=== PATIENT | female | born 1970 | race Caucasian/White ===

== ENCOUNTER → 2017-01-29 | Outpatient (CLI) | payer BC ==
--- NOTE | 2017-01-29 14:21 | MM ---
Reason for exam: clinical finding. Last mammogram was performed 2 years and 10 months ago. History: Family history of breast cancer in aunt. Indicated problem(s): lump or thickening in the left breast. Physical Findings: Nurse Summary: 0.5cm/1cm nodule in the left breast at 1 o'clock/2 o'clock (nurse cw, mm). MG 3D Diag Mammo W/Cad LUCIANO Bilateral CC and MLO view(s) were taken. Prior study comparison: March 24, 2014, bilateral MG diagnostic mammo w CAD LUCIANO. The breast tissue is extremely dense which could obscure a lesion on mammography. Finding: There is a typically benign equal density (isodense), circumscribed round mass located 6 cm from the nipple in the upper outer quadrant, middle position of the left breast, corresponds to cyst on ultrasound. No significant changes in finding since March 24, 2014. These results were verbally communicated with the patient and result sheet given to the patient on 01/29/17. ASSESSMENT: Probably benign, BI-RAD 3 RECOMMENDATION: Follow-up diagnostic mammogram of the left breast in 6 months.
--- NOTE | 2017-01-29 14:24 | USB ---
Reason for exam: clinical finding. History: Family history of breast cancer in aunt. Indicated problem(s): lump or thickening in the left breast. US Breast BILAT Right breast ultrasound includes all four quadrants, the retroareolar region and axilla. Finding demonstrates a 1.0 x 0.9 x 0.5cm oval, mixed lesion at 10 o'clock. Left breast ultrasound includes all four quadrants, the retroareolar region and axilla. Finding demonstrates a 0.6 x 0.7 x 0.3cm oval, mixed lesion at 12 o'clock palpable, a 1.6 x 1.1 x 1.0cm cystic cluster at 1 o'clock palpable, a 1.2 x 1.2 x 0.7cm oval, cystic lesion at 1 o'clock palpable and a 0.5 x 0.5 x 0.3cm oval, cystic lesion at 7 o'clock. These results were verbally communicated with the patient and result sheet given to the patient on 01/29/17. ASSESSMENT: Probably benign, BI-RAD 3 RECOMMENDATION: Ultrasound of both breasts in 6 months.
== END ==
LOC: RADMAMWWP 12:28
PROVIDERS: ATTEND Family Medicine
DX: N63 Unspecified lump in breast (principal)
CPT/HCPCS: 76641; G0204; G0279

== ENCOUNTER → 2018-02-28 | Outpatient (CLI) | payer BC ==
--- NOTE | 2018-03-04 08:19 | MM ---
Reason for exam: screening (asymptomatic). Last mammogram was performed 7 months ago. History: Family history of breast cancer in aunt. Physical Findings: A clinical breast exam by your physician is recommended on an annual basis and results should be correlated with mammographic findings. MG 3D Screening Mammo W/Cad Bilateral CC and MLO view(s) were taken. Prior study comparison: August 07, 2017, left breast MG 3d diag mammo w/cad LT. January 29, 2017, bilateral MG 3d diag mammo w/cad LUCIANO. The breast tissue is heterogeneously dense. This may lower the sensitivity of mammography. There is chronic nodularity in the left breast. No significant changes when compared with prior studies. ASSESSMENT: Benign, BI-RAD 2 RECOMMENDATION: Routine screening mammogram of both breasts in 1 year.
== END | disposition home or self-care (01) ==
LOC: RADMAMWWP 06:59
PROVIDERS: ATTEND Family Medicine
DX: Z12.31 Encounter for screening mammogram for malignant neoplasm of breast (principal)
CPT/HCPCS: 77063; 77067

== ENCOUNTER 2018-04-20 17:18 | Inpatient (IN) | payer BC ==
--- NOTE | 2018-04-20 17:55 | ED ---
General Adult HPI - General Chief complaint: Chest Pain Stated complaint: CHEST PAIN Source: patient Mode of arrival: wheelchair Limitations: no limitations - History of Present Illness Initial comments: Dictation was produced using [employer] dictation software. please excuse any grammatical, word or spelling errors. Chief Complaint: 47-year-old femalepast medical history presents with crushing chest pain. History of Present Illness: Patient describes her symptoms as a bandlike pressure around her chest. She has strong family history of cardiac disease. Her father had CABG at the age of 47. She also has maternal, history of cardiac disease. Patient denies any medical problems. States that her pain is not mitigated or exacerbated with any movements. Denies any trauma to the chest. Denies any associated diaphoresis. He feels nauseated but no vomiting. The ROS documented in this emergency department record has been reviewed and confirmed by me. Those systems with pertinent positive or negative responses have been documented in the HPI. All other systems are other negative and/or noncontributory. - Related Data Home Medications Medication Instructions Recorded Confirmed Aspirin EC [Ecotrin] 325 mg PO DAILY PRN 04/20/18 04/20/18 Ibuprofen [Motrin Ib] 600 mg PO TID PRN 04/20/18 04/20/18 Allergies Allergy/AdvReac Type Severity Reaction Status Date / Time penicillin G Allergy Unknown Verified 04/20/18 17:29 Review of Systems ROS Statement: Those systems with pertinent positive or pertinent negative responses have been documented in the HPI. ROS Other: All systems not noted in ROS Statement are negative. Past Medical History Past Medical History: No Reported History History of Any Multi-Drug Resistant Organisms: None Reported Past Surgical History: Cholecystectomy, Hysterectomy Additional Past Surgical History / Comment(s): jaw Past Psychological History: No Psychological Hx Reported Smoking Status: Never smoker Past Alcohol Use History: None Reported Past Drug Use History: None Reported General Exam - General Exam Comments Initial Comments: PHYSICAL EXAM: General Impression: Alert and oriented x3, not in acute distress HEENT: Normocephalic atraumatic, extra-ocular movements intact, pupils equal and reactive to light bilaterally, mucous membranes moist. Cardiovascular: Heart regular rate and rhythm, S1&S2 audible, no murmurs, rubs or gallops Chest: Lungs clear to auscultation bilaterally, no rhonchi, no wheeze, no rales Abdomen: Bowel sounds present, abdomen soft, non-tender, non-distended, no organomegaly Musculoskeletal: Pulses present and equal in all extremities, no peripheral edema Motor: Power 5/5 bilaterally, no focal deficits noted Neurological: CN II-XII grossly intact, no focal motor or sensory deficits noted Skin: Intact with no visualized rashes Psych: Normal affect and mood Limitations: no limitations Course Vital Signs 04/20/18 04/20/18 04/20/18 17:20 18:55 20:41 Temperature 99 F 100.0 F H Pulse Rate 89 72 76 Respiratory 18 18 18 Rate Blood Pressure 151/86 139/87 133/79 O2 Sat by Pulse 97 98 96 Oximetry Medical Decision Making - Medical Decision Making ED course:-year-old female presents with chief complaint of chest pain. Vital signs upon arrival are within acceptable limits. She reports taking 325 mg of aspirin prior to arrival today. Serial EKGs were obtained. Initial EKG showed T-wave inversion in 3 and aVF. Repeat EKG was performed placement 30 minutes later with thin any changes with progressing T-wave inversions in 2 and precordial leads V2 and V3. Right-sided EKGs were obtained showing no ST segment elevation in the right side. EKG #4 was obtained showing no other changes. Discussed patient case with Dr. Adams at approximately 6:00 PM recommend the patient be heparinized and started on nitroglycerin paste. He did not feel the need to activate STEMI at this time. Laboratory evaluation was obtained. CBC is unremarkable. Patient is a pleasant , 90. She does not complain of any bleeding symptoms. Coag panel is unremarkable. D-dimer is 3.1. Metabolic panel is unremarkable. Cardiac enzymes are negative. Chest x-ray shows no acute processes. CT angios the chest was obtained for elevated d-dimer and suspicion of pulmonary embolus CT is negative. Clinical presentation is most consistent with unstable angina. Patient started on heparin and nitro. She will be admitted to selective care. Cardiology on consult. Patient is understandable and agreeable to plan. She received an aspirin prior to coming to the emergency department. Patient reevaluated and still continues have chest pain despite the nitroglycerin. She is given some IV analgesics. Patient denies any progression of her symptoms since being in the emergency department. Since the nitroglycerin is not helping with her symptoms. EKG Interpretation: A 12 lead EKG was obtained. It was interpreted by myself and attending physician. There is a P wave before every QRS complex. Rate is 78. Rhythm is normal sinus rhythm,. Interval 146, QRS 82, QTc 449. QT is not prolonged. No ST segment depression or elevation. There are T-wave inversions in 3 and aVF. - Lab Data Result diagrams: 04/20/18 18:00 04/20/18 18:00 Lab Results 04/20/18 04/20/18 04/20/18 Range/Units 18:00 18:00 18:00 WBC 4.7 (3.8-10.6) k/uL RBC 4.23 (3.80-5.40) m/uL Hgb 13.5 (11.4-16.0) gm/dL Hct 37.7 (34.0-46.0) % MCV 89.2 (80.0-100.0) fL MCH 31.8 (25.0-35.0) pg MCHC 35.6 (31.0-37.0) g/dL RDW 15.1 (11.5-15.5) % Plt Count 90 L (150-450) k/uL Neutrophils % (Manual) 21 % Lymphocytes % (Manual) 78 % Eosinophils % (Manual) 1 % Basophils % (Manual) 1 % Neutrophils # (Manual) 0.99 L (1.3-7.7) k/uL Lymphocytes # (Manual) 3.67 (1.0-4.8) k/uL Eosinophils # (Manual) 0.05 (0-0.7) k/uL Basophils # (Manual) 0.05 (0-0.2) k/uL Nucleated RBCs 0 (0-0) /100 WBC Manual Slide Review Performed Polychromasia Present Poikilocytosis (manual Present PT (9.0-12.0) sec INR (<1.2) APTT (22.0-30.0) sec D-Dimer (<0.60) mg/L FEU Sodium 139 (137-145) mmol/L Potassium 3.6 (3.5-5.1) mmol/L Chloride 107 (98-107) mmol/L Carbon Dioxide 24 (22-30) mmol/L Anion Gap 8 mmol/L BUN 19 H (7-17) mg/dL Creatinine 0.60 (0.52-1.04) mg/dL Est GFR (CKD-EPI)AfAm >90 (>60 ml/min/1.73 sqM) Est GFR (CKD-EPI)NonAf >90 (>60 ml/min/1.73 sqM) Glucose 119 H (74-99) mg/dL Calcium 9.4 (8.4-10.2) mg/dL Magnesium 1.7 (1.6-2.3) mg/dL Total Bilirubin 1.6 H (0.2-1.3) mg/dL AST 83 H (14-36) U/L ALT 37 (9-52) U/L Alkaline Phosphatase 54 (38-126) U/L Total Creatine Kinase 64 (30-135) U/L CK-MB (CK-2) 1.2 (0.0-2.4) ng/mL CK-MB (CK-2) Rel Index 1.9 Troponin I <0.012 (0.000-0.034) ng/mL Total Protein 6.4 (6.3-8.2) g/dL Albumin 4.1 (3.5-5.0) g/dL 04/20/18 Range/Units 18:00 WBC (3.8-10.6) k/uL RBC (3.80-5.40) m/uL Hgb (11.4-16.0) gm/dL Hct (34.0-46.0) % MCV (80.0-100.0) fL MCH (25.0-35.0) pg MCHC (31.0-37.0) g/dL RDW (11.5-15.5) % Plt Count (150-450) k/uL Neutrophils % (Manual) % Lymphocytes % (Manual) % Eosinophils % (Manual) % Basophils % (Manual) % Neutrophils # (Manual) (1.3-7.7) k/uL Lymphocytes # (Manual) (1.0-4.8) k/uL Eosinophils # (Manual) (0-0.7) k/uL Basophils # (Manual) (0-0.2) k/uL Nucleated RBCs (0-0) /100 WBC Manual Slide Review Polychromasia Poikilocytosis (manual PT 10.6 (9.0-12.0) sec INR 1.1 (<1.2) APTT 23.9 (22.0-30.0) sec D-Dimer 3.10 H (<0.60) mg/L FEU Sodium (137-145) mmol/L Potassium (3.5-5.1) mmol/L Chloride (98-107) mmol/L Carbon Dioxide (22-30) mmol/L Anion Gap mmol/L BUN (7-17) mg/dL Creatinine (0.52-1.04) mg/dL Est GFR (CKD-EPI)AfAm (>60 ml/min/1.73 sqM) Est GFR (CKD-EPI)NonAf (>60 ml/min/1.73 sqM) Glucose (74-99) mg/dL Calcium (8.4-10.2) mg/dL Magnesium (1.6-2.3) mg/dL Total Bilirubin (0.2-1.3) mg/dL AST (14-36) U/L ALT (9-52) U/L Alkaline Phosphatase (38-126) U/L Total Creatine Kinase (30-135) U/L CK-MB (CK-2) (0.0-2.4) ng/mL CK-MB (CK-2) Rel Index Troponin I (0.000-0.034) ng/mL Total Protein (6.3-8.2) g/dL Albumin (3.5-5.0) g/dL Disposition Clinical Impression: Unstable angina Disposition: ADMITTED IP TO THIS [facility] Condition: Fair Referrals: Nataliia Frias DO [Primary Care Provider] - 1-2 days Time of Disposition: 21:03
[2018-04-20] MEDS ORDERED: HEPARIN SODIUM,PORCINE 5,000 UNIT/ML 1 ML VIAL IV PRN (18:15)
[2018-04-20] MEDS ORDERED: HEPARIN SODIUM,PORCINE 5,000 UNIT/ML 1 ML VIAL IV ONE (18:15)
[2018-04-20] MEDS ORDERED: HEPARIN SOD,PORK IN 0.45% NACL 25,000 UNIT in 0.45% NACL 1 500ML.BAG IV SCH (18:15)
[2018-04-20] MEDS ORDERED: NITROGLYCERIN OINT 1 INCH/GM PACKET TOPICAL STA (18:16)
[2018-04-20 18:22] LABS: HCT 37.7 % (34.0-46.0); HGB 13.5 gm/dL (11.4-16.0); MCH 31.8 pg (25.0-35.0); MCHC 35.6 g/dL (31.0-37.0); MCV 89.2 fL (80.0-100.0); Mean Platelet Volume 7.6; RBC 4.23 m/uL (3.80-5.40); RDW 15.1 % (11.5-15.5); WBC 4.7 k/uL (3.8-10.6)
[2018-04-20 18:30] LABS: Creatine Kinase 64 U/L (30-135)
[2018-04-20 18:32] LABS: ALT 37 U/L (9-52); AST 83 U/L (14-36); Albumin 4.1 g/dL (3.5-5.0); Alkaline Phosphatase 54 U/L (38-126); Anion Gap 8 mmol/L; Blood Urea Nitrogen 19 mg/dL (7-17); Calcium 9.4 mg/dL (8.4-10.2); Carbon Dioxide 24 mmol/L (22-30); Chloride 107 mmol/L (98-107); Glucose 119 mg/dL (74-99); Magnesium 1.7 mg/dL (1.6-2.3); Potassium 3.6 mmol/L (3.5-5.1); Sodium 139 mmol/L (137-145); Total Bilirubin 1.6 mg/dL (0.2-1.3); Total Protein 6.4 g/dL (6.3-8.2)
[2018-04-20 18:38] LABS: INR 1.1 (<1.2); Partial Thromboplastin Time 23.9 sec (22.0-30.0); Prothrombin Time 10.6 sec (9.0-12.0)
[2018-04-20 18:41] LABS: D-Dimer 3.1 mg/L FEU (<0.60)
[2018-04-20 18:43] LABS: Creatine Kinase MB 1.2 ng/mL (0.0-2.4); Troponin I <0.012 ng/mL (0.000-0.034)
--- NOTE | 2018-04-20 18:43 | XR ---
EXAMINATION TYPE: XR chest 2V DATE OF EXAM: 04/20/2018 COMPARISON: 06/12/2016 HISTORY: Chest pain TECHNIQUE: Frontal and lateral views of the chest are obtained. FINDINGS: Heart and mediastinum are normal. Lungs are clear. Diaphragm is normal. Bony thorax appear s normal. IMPRESSION: Normal chest. No change.
[2018-04-20 18:48] LABS: Basophils # (M) 0.05 k/uL (0-0.2); Eosinophils # (M) 0.05 k/uL (0-0.7); Lymphocytes # (M) 3.67 k/uL (1.0-4.8); Neutrophils # (M) 0.99 k/uL (1.3-7.7); Neutrophils % (M) 21 %; Nucleated Red Blood Cells 0 /100 WBC (0-0); Platelet Count 90 k/uL (150-450); Poikilocytosis (M) Present; Polychromasia Present; Total Cells Counted 200
--- NOTE | 2018-04-20 20:12 | CT ---
EXAMINATION TYPE: CT angio chest DATE OF EXAM: 04/20/2018 7:57 PM COMPARISON: None HISTORY: Mid chest pain today. CT DLP: 197.8 mGycm Automated exposure control for dose reduction was used. CONTRAST: CTA scan of the thorax is performed with IV Contrast, patient injected with 82 mL of Isovue 370, pulm onary embolism protocol. There are 3-D post processed images.. FINDINGS: The lungs are clear of infiltrate. There is no sign of pleural effusion or pneumothorax. There is no evidence of a pulmonary mass. Heart size is normal. There is no pericardial effusion. There is normal contrast opacification of the pulmonary arteries. I see no filling defect. The thoracic aorta appear s normal with no sign of aneurysm or dissection. There is no mediastinal adenopathy. There are no hil ar masses. The bony thorax is intact. IMPRESSION: NORMAL EXAM. NO EVIDENCE OF PULMONARY EMBOLISM.
[2018-04-20] MEDS ORDERED: fentaNYL (PF) 50 MCG/ML 2 ML AMP IVP STA (20:56)
[2018-04-20] MEDS ORDERED: MORPHINE SULFATE 2 MG/ML SYRINGE IVP PRN (21:18)
[2018-04-20] MEDS: ONDANSETRON 4 MG/2 ML VIAL IVP STA (22:39)
[2018-04-20 22:53] LABS: Glucose,Whole Blood 159 mg/dL (75-99)
[2018-04-21 00:41] LABS: Creatine Kinase 49 U/L (30-135)
[2018-04-21 00:53] LABS: Creatine Kinase MB 0.7 ng/mL (0.0-2.4); Troponin I <0.012 ng/mL (0.000-0.034)
[2018-04-21 05:44] LABS: Mean Platelet Volume 7.8
[2018-04-21 05:46] LABS: Platelet Count 88 k/uL (150-450)
[2018-04-21 05:56] LABS: Cholesterol 134 mg/dL (<200); HDL Cholesterol 51 mg/dL (40-60); LDL Cholesterol,Calculated 69 mg/dL (0-99); Triglycerides 71 mg/dL (<150)
[2018-04-21 06:08] LABS: Creatine Kinase 74 U/L (30-135)
[2018-04-21 06:21] LABS: Creatine Kinase MB 1.5 ng/mL (0.0-2.4); Troponin I <0.012 ng/mL (0.000-0.034)
[2018-04-21 08:50] LABS: HCT 35.7 % (34.0-46.0); HGB 12.2 gm/dL (11.4-16.0); MCH 30.9 pg (25.0-35.0); MCHC 34.1 g/dL (31.0-37.0); MCV 90.8 fL (80.0-100.0); Mean Platelet Volume 8.3; RBC 3.94 m/uL (3.80-5.40); RDW 15.7 % (11.5-15.5); WBC 5.2 k/uL (3.8-10.6)
--- NOTE | 2018-04-21 08:55 | P.CRDCN ---
History of Present Illness Consult date: 04/21/18 Requesting physician: Duncan Islas Consult reason: chest pain Chief complaint: Chest pain History of present illness: This is a pleasant 47-year-old female with no prior documented history of hypertension, no diabetes, no hyperlipidemia, nonsmoker, strong family history of premature coronary artery disease in several relatives, her father had an [place] with bypass surgery at the age of 42. She presents to the hospital with symptoms of chest discomfort. According to the patient around 4: 00 on Saturday she states that she developed a pain in her lower back, she took some Motrin, had a hot bath, put some ointment on to help with the discomfort, shortly thereafter she states that the symptoms radiated around to her chest, she describes the pain as a squeezing sensation that was quite severe. She states that she was unable to take a deep breath because the pain was so severe , she does not recall that the pain got better or worse with movement or breathing. She states that the chest discomfort lasted almost the entire day on Saturday, she ultimately came to the emergency room for further evaluation. Pain persisted in the emergency room, around 4 AM she states that finally the pain was gone. Patient did have one episode while in the emergency room of vomiting. At the time of my examination she is currently chest pain-free. EKG on admission here showed a normal sinus rhythm with T-wave inversion in the inferior leads, subsequent EKG was similar, 30 EKG was performed which showed a normal sinus rhythm with T-wave inversion in the inferior leads and in the lateral leads. An EKG which was reviewed from 2015 did show the T-wave inversion in the inferior leads. Chest x-ray normal. Blood pressure 120/70 with a heart rate in the 60s, afebrile, 99% on 2 L of oxygen. Temperature on admission 99, one subsequent temperature was 100. White blood cell count 4.7, hemoglobin 13.5, platelet count 90, 88 this morning.D-dimer 3.10, sodium 139, potassium 3.6, BUN 19, creatinine 0.6. Troponins have been negative 3. Total bilirubin 1.6, AST 83, ALT 37. Magnesium 1.7. Past Medical History Past Medical History: No Reported History History of Any Multi-Drug Resistant Organisms: None Reported Past Surgical History: Cholecystectomy, Hysterectomy Additional Past Surgical History / Comment(s): jaw Past Psychological History: No Psychological Hx Reported Smoking Status: Never smoker Past Alcohol Use History: None Reported Past Drug Use History: None Reported Medications and Allergies Home Medications Medication Instructions Recorded Confirmed Type Aspirin EC [Ecotrin] 325 mg PO DAILY PRN 04/20/18 04/20/18 History Ibuprofen [Motrin Ib] 600 mg PO TID PRN 04/20/18 04/20/18 History Allergies Allergy/AdvReac Type Severity Reaction Status Date / Time penicillin G Allergy Unknown Verified 04/20/18 17:29 Physical Exam Vitals: Vital Signs Temp Pulse Resp BP Pulse Ox 04/21/18 08:24 68 16 119/73 99 04/21/18 07:02 73 18 119/74 97 04/21/18 05:40 98.8 F 87 18 115/70 97 04/21/18 03:05 98.8 F 75 16 110/70 98 04/21/18 00:56 98.9 F 81 18 113/71 96 04/20/18 22:40 69 16 117/71 97 04/20/18 20:41 100.0 F H 76 18 133/79 96 04/20/18 18:55 72 18 139/87 98 04/20/18 17:20 99 F 89 18 151/86 97 Intake and Output 04/20/18 04/21/18 04/21/18 22:59 06:59 14:59 Other: Weight 75.296 kg PHYSICAL EXAMINATION: GENERAL: 47-year-old female in no acute distress at the time of my examination HEENT: Head is atraumatic, normocephalic. Pupils equal, round. Sclera anicteric. Conjunctiva are clear. Mucous membranes of the mouth are moist. Neck is supple. There is no elevated jugular venous pressure. No carotid bruit is heard. HEART EXAMINATION: Heart S1, S2 normal. No murmur or gallop heard. CHEST EXAMINATION: Lungs are clear to auscultation and precussion. No chest wall tenderness is noted on palpation or with deep breathing. ABDOMEN: Soft, nontender. Bowel sounds are heard. No organomegaly noted. EXTREMITIES: 2+ peripheral pulses with no evidence of peripheral edema and no calf tenderness noted. NEUROLOGIC patient is awake, alert and oriented X3. . Results 04/21/18 05:24 04/20/18 18:00 Cardiac Enzymes 04/20/18 04/20/18 04/21/18 Range/Units 18:00 18:00 00:02 AST 83 H (14-36) U/L CK-MB (CK-2) 1.2 0.7 (0.0-2.4) ng/mL Troponin I <0.012 <0.012 (0.000-0.034) ng/mL 04/21/18 Range/Units 05:24 AST (14-36) U/L CK-MB (CK-2) 1.5 (0.0-2.4) ng/mL Troponin I <0.012 (0.000-0.034) ng/mL Coagulation 04/20/18 04/21/18 Range/Units 18:00 00:02 PT 10.6 (9.0-12.0) sec APTT 23.9 52.4 H (22.0-30.0) sec Lipids 04/21/18 Range/Units 05:24 Triglycerides 71 (<150) mg/dL Cholesterol 134 (<200) mg/dL HDL Cholesterol 51 (40-60) mg/dL CBC 04/20/18 04/21/18 Range/Units 18:00 05:24 WBC 4.7 (3.8-10.6) k/uL RBC 4.23 (3.80-5.40) m/uL Hgb 13.5 (11.4-16.0) gm/dL Hct 37.7 (34.0-46.0) % Plt Count 90 L 88 L (150-450) k/uL Comprehensive Metabolic Panel 04/20/18 Range/Units 18:00 Sodium 139 (137-145) mmol/L Potassium 3.6 (3.5-5.1) mmol/L Chloride 107 (98-107) mmol/L Carbon Dioxide 24 (22-30) mmol/L BUN 19 H (7-17) mg/dL Creatinine 0.60 (0.52-1.04) mg/dL Glucose 119 H (74-99) mg/dL Calcium 9.4 (8.4-10.2) mg/dL AST 83 H (14-36) U/L ALT 37 (9-52) U/L Alkaline Phosphatase 54 (38-126) U/L Total Protein 6.4 (6.3-8.2) g/dL Albumin 4.1 (3.5-5.0) g/dL Current Medications Generic Name Dose Route Start Last Admin Trade Name Hunterq PRN Reason Stop Dose Admin Aspirin 325 mg 04/21/18 09:00 Aspirin PO DAILY [facility] Heparin Sodium (Porcine) 0 unit 04/20/18 18:15 Heparin IV PER PROTOCOL PRN Low PTT Protocol Heparin Sodium/Sodium Chloride 500 mls @ 18.07 mls/hr 04/20/18 18:15 19:13 25,000 unit/ Sodium Chloride IV 12 units/kg/hr .Q24H CONY 18.07 mls/hr Administration Protocol 12 UNITS/KG/HR Morphine Sulfate 2 mg 04/20/18 21:18 Morphine Sulfate (Inj) IVP Q4H PRN Pain/Discomfort Intake and Output 04/20/18 04/21/18 04/21/18 22:59 06:59 14:59 Other: Weight 75.296 kg 04/21/18 05:24 04/20/18 18:00 EKG Interpretations (text) Initial EKG shows normal sinus rhythm with T-wave inversion in the inferior leads, 3rd EKG showed normal sinus rhythm with a T-wave inversion in the inferior and lateral leads. Assessment and Plan Plan: Assessment and plan #1 symptoms of lower back discomfort with radiation around to the chest, atypical features for acute coronary syndrome. Troponins are negative 3. EKG shows normal sinus rhythm with T-wave inversion in the inferior leads similar to prior EKG in 2016. Subsequent EKG shows normal sinus rhythm with T-wave inversion in the inferior and lateral leads. #2 strong family history of premature coronary artery disease #3 abnormal d-dimer, CT of the chest negative for PE #4 elevated bilirubin and AST, patient does have a history of cholecystectomy in the past #5 cardiac risk factors negative for hypertension, no diabetes, no hyperlipidemia, she is a nonsmoker. Cholesterol 134, LDL 69, HDL 51, triglycerides 71. Plan We will discontinue the IV heparin. Obtain echocardiogram with Doppler study. We will recommend the patient undergo stress testing, further recommendations will be based on these findings and the patient's clinical course. DNP note has been reviewed, I agree with a documented findings and plan of care. Patient was seen and examined.
[2018-04-21] MEDS ORDERED: ASPIRIN 325 MG TAB PO SCH (09:00)
[2018-04-21 09:22] LABS: ALT 32 U/L (9-52); AST 75 U/L (14-36); Albumin 3.7 g/dL (3.5-5.0); Alkaline Phosphatase 47 U/L (38-126); Anion Gap 8 mmol/L; Blood Urea Nitrogen 16 mg/dL (7-17); Calcium 8.6 mg/dL (8.4-10.2); Carbon Dioxide 25 mmol/L (22-30); Chloride 106 mmol/L (98-107); Glucose 124 mg/dL (74-99); Potassium 3.6 mmol/L (3.5-5.1); Sodium 139 mmol/L (137-145); Total Bilirubin 2.1 mg/dL (0.2-1.3); Total Protein 5.9 g/dL (6.3-8.2)
[2018-04-21] MEDS ORDERED: REGADENOSON 0.4 MG/5 ML SYRINGE IV ONE (10:11)
[2018-04-21] MEDS ORDERED: AMINOPHYLLINE 500 MG/20 ML VIAL IV PRN (10:11)
--- NOTE | 2018-04-21 10:14 | ECHOF ---
Referral Reason:chest pain MEASUREMENTS -------- HEIGHT: 177.8 cm WEIGHT: 75.3 kg BP: 110/75 RVIDd: 2.0 cm (< 3.3) IVSd: 0.9 cm (0.6 - 1.1) LVIDd: 4.7 cm (3.9 - 5.3) LVPWd: 0.9 cm (0.6 - 1.1) IVSs: 1.3 cm LVIDs: 2.9 cm LVPWs: 1.3 cm LAESV Index (A-L): 23.68 ml/m Ao Diam: 3.2 cm (2.0 - 3.7) AV Cusp: 1.9 cm (1.5 - 2.6) LA Diam: 2.7 cm (2.7 - 3.8) EPSS: 0.4 cm MV E Dewayne: 0.65 m/s MV DecT: 329 ms MV A Dewayne: 0.54 m/s MV E/A Ratio: 1.20 RAP: 5.00 mmHg RVSP: 17.93 mmHg MV EF SLOPE: 77.60 mm/s (70 - 150) MV EXCURSION: 1.59 cm (> 18.000) FINDINGS -------- Sinus rhythm. This was a technically good study. The left ventricular size is normal. Left ventricular wall thickness is normal. Overall left vent ricular systolic function is normal with, an EF between 55 - 60 %. The right ventricle is normal in size and function. Normal LA size by volume 22+/-6 ml/m2. The right atrium is normal in size. The aortic valve is trileaflet, and appears structurally normal. No aortic stenosis or regurgitation. The mitral valve is normal. There is trace to mild mitral regurgitation. Trace tricuspid regurgitation present. Right ventricular systolic pressure is normal at < 35 mmHg. There is no evidence of pulmonary hypertension. Trace/mild (physiologic) pulmonic regurgitation. The aortic root size is normal. Normal inferior vena cava with normal inspiratory collapse consistent with estimated right atrial pre ssure of 5 mmHg. There is no pericardial effusion. CONCLUSIONS -------- 1. Sinus rhythm. 2. This was a technically good study. 3. The left ventricular size is normal. 4. Left ventricular wall thickness is normal. 5. Overall left ventricular systolic function is normal with, an EF between 55 - 60 %. 6. Normal LA size by volume 22+/-6 ml/m2. 7. The aortic valve is trileaflet, and appears structurally normal. No aortic stenosis or regurgitati on. 8. There is trace to mild mitral regurgitation. 9. Trace tricuspid regurgitation present. 10. Right ventricular systolic pressure is normal at < 35 mmHg. 11. Trace/mild (physiologic) pulmonic regurgitation. 12. The aortic root size is normal. 13. There is no pericardial effusion. FIRMWARE ARCHITECT: Anant Cohen RDCS
[2018-04-21 10:35] LABS: Anisocytosis (M) Present; Lymphocytes # (M) 3.33 k/uL (1.0-4.8); Myelocytes # (M) 0.05 k/uL (0); Myelocytes % 1 %; Nucleated Red Blood Cells 0 /100 WBC (0-0); Polychromasia Present; Total Cells Counted 200
[2018-04-21 10:36] LABS: Platelet Count 88 k/uL (150-450)
[2018-04-21] MEDS ORDERED: SODIUM CHLORIDE 0.9% 1,000 ML IV SCH (10:45)
[2018-04-21 11:14] LABS: Amylase 44 U/L (30-110); Lipase 77 U/L (23-300)
--- NOTE | 2018-04-21 11:18 | P.HPIM ---
History of Present Illness H&P Date: 04/21/18 Chief Complaint: chest pain This is a 47-year-old female patient of Dr. Frias. Patient presented to the emergency room with complaints of chest pain that started in the early hours of Saturday morning. Patient stated pain started out in back radiating to around her chest. Patient states it felt like a band was wrapped around her chest patient has a known past medical history of cholecystectomy and hysterectomy. Patient does ache that she has strong family history of cardiac disease including her father who had open heart surgery at the age of 42. Troponins have been negative. Chest x-ray completed showing normal chest. no Change. Admission d-dimer elevated at 3.10 DT the chest completed was negative for pulmonary embolism. EKG completed showing normal sinus rhythm. T-wave abnormality, consider inferior ischemia. Cardiology services were consulted. 2 -D echo completed EF of 55-60%. Patient was started on heparin drip on admission. Heparin drip has been DC'd per cardiology services and planning for a Chemical stress test today. Patient's platelets on admission 90. Denies any signs of active bleeding at this time. Bilirubin increasing to 2.1 and AST 75. Complete abdominal ultrasound has been ordered along with amylase and lipase levels. Patient denies any alcohol consumption. Patient does state she has been nauseous with some emesis yesterday and today. Patient denies shortness of breath. denies any urinary burning or frequency. Review of Systems Please refer to HPI otherwise unremarkable Past Medical History Past Medical History: No Reported History History of Any Multi-Drug Resistant Organisms: None Reported Past Surgical History: Cholecystectomy, Hysterectomy Additional Past Surgical History / Comment(s): jaw Past Psychological History: No Psychological Hx Reported Smoking Status: Never smoker Past Alcohol Use History: None Reported Past Drug Use History: None Reported Medications and Allergies Home Medications Medication Instructions Recorded Confirmed Type Aspirin EC [Ecotrin] 325 mg PO DAILY PRN 04/20/18 04/20/18 History Ibuprofen [Motrin Ib] 600 mg PO TID PRN 04/20/18 04/20/18 History Allergies Allergy/AdvReac Type Severity Reaction Status Date / Time penicillin G Allergy Unknown Verified 04/20/18 17:29 Physical Exam Vitals: Vital Signs Temp Pulse Resp BP Pulse Ox 04/21/18 10:39 70 18 110/72 98 04/21/18 08:24 68 16 119/73 99 04/21/18 07:02 73 18 119/74 97 04/21/18 05:40 98.8 F 87 18 115/70 97 04/21/18 03:05 98.8 F 75 16 110/70 98 04/21/18 00:56 98.9 F 81 18 113/71 96 04/20/18 22:40 69 16 117/71 97 04/20/18 20:41 100.0 F H 76 18 133/79 96 04/20/18 18:55 72 18 139/87 98 04/20/18 17:20 99 F 89 18 151/86 97 Intake and Output 04/20/18 04/21/18 04/21/18 22:59 06:59 14:59 Other: Weight 75.296 kg Head normocephalic Neck supple Lungs clear to auscultation bilaterally no wheezing or crackles Heart regular rate and rhythm S1-S2, no rub or gallop Abdomen is soft nontender nondistended positive bowel sounds no hepatosplenomegaly Extremities no edema Neuro alert and orientated to 3 Results CBC & Chem 7: 04/21/18 05:24 04/21/18 05:24 Labs: Abnormal Lab Results - Last 24 Hours (Table) 04/20/18 04/20/18 04/20/18 Range/Units 18:00 18:00 18:00 RDW (11.5-15.5) % Plt Count 90 L (150-450) k/uL Neutrophils # (Manual) 0.99 L (1.3-7.7) k/uL APTT (22.0-30.0) sec D-Dimer 3.10 H (<0.60) mg/L FEU BUN 19 H (7-17) mg/dL Glucose 119 H (74-99) mg/dL POC Glucose (mg/dL) (75-99) mg/dL Total Bilirubin 1.6 H (0.2-1.3) mg/dL AST 83 H (14-36) U/L Total Protein (6.3-8.2) g/dL 04/20/18 04/21/18 04/21/18 Range/Units 22:37 00:02 05:24 RDW (11.5-15.5) % Plt Count 88 L (150-450) k/uL Neutrophils # (Manual) (1.3-7.7) k/uL APTT 52.4 H (22.0-30.0) sec D-Dimer (<0.60) mg/L FEU BUN (7-17) mg/dL Glucose (74-99) mg/dL POC Glucose (mg/dL) 159 H (75-99) mg/dL Total Bilirubin (0.2-1.3) mg/dL AST (14-36) U/L Total Protein (6.3-8.2) g/dL 04/21/18 04/21/18 Range/Units 05:24 05:24 RDW 15.7 H (11.5-15.5) % Plt Count (150-450) k/uL Neutrophils # (Manual) (1.3-7.7) k/uL APTT (22.0-30.0) sec D-Dimer (<0.60) mg/L FEU BUN (7-17) mg/dL Glucose 124 H (74-99) mg/dL POC Glucose (mg/dL) (75-99) mg/dL Total Bilirubin 2.1 H (0.2-1.3) mg/dL AST 75 H (14-36) U/L Total Protein 5.9 L (6.3-8.2) g/dL Assessment and Plan Assessment: 1. Chest pain. Patient does state she has a history of cardiac disease including father who had open bypass at age 42. Troponin levels are negative. D-dimer was elevated at 3.10. CTA negative for pulmonary embolism. EKG showing normal sinus rhythm with T-wave abnormality. Chest x-ray completed and was negative for pulmonary disease. 2-D echo completed showing EF of 55-60%. Patient was started on heparin drip. Cardiology services following. Heparin drip has been discontinued and plan for chemical stress test per cardiology 2. Nausea and vomiting. Complete ultrasound of abdomen ordered. Amylase and lipase levels also ordered. 2. Thromobcytepenia. Platelets 88. Etiology unclear. Ultrasound of abdomen ordered. Heparin drip has been discontinued per cardiology 3. Elevated liver enzymes and total bilirubin. AST 75 and total bilirubin 2.1. She does report that she is nauseated. Complete ultrasound of abdomen ordered along with amylase and lipase levels 4. History of Cholesyctecomy DVT prophylaxis SCDs. Patient previously on heparin drip. DVT prophylaxis Pepcid Time with Patient: Greater than 30 (Greater than 60% of the total time spent in counseling and coordination of care.I performed an examination of the patient and discussed their management with the Nurse Practitioner. I have reviewed the Nurse Practitioner's notes and agree with the documented findings and plan of care)
--- NOTE | 2018-04-21 12:39 | NM ---
EXAMINATION TYPE: NM stress lexiscan cardiolite DATE OF EXAM: 04/21/2018 COMPARISON: Prior nuclear medicine Cardiolite study March 27, 2010. HISTORY: Chest pain and palpitations. TECHNIQUE: After the intravenous administration of 10.3 mCi Tc 99m Sestamibi - Cardiolite resting SP ECT images acquired 45 minutes post injection. The patient received 0.4mg Lexiscan, 25.4 mCi Tc 99m Sestamibi - Stress images obtained [address] injection FINDINGS: Review of stress and rest SPECT images demonstrates no distinct perfusion abnormality. Gated analysi s shows normal wall motion with an estimated left ventricular ejection fraction of 71 % during rest. IMPRESSION: No scintigraphic evidence for reversible ischemia.
[2018-04-21] MEDS: ONDANSETRON 4 MG/2 ML VIAL IVP STA (12:44)
[2018-04-21] MEDS ORDERED: ACETAMINOPHEN TAB 500 MG TAB PO STA (12:46)
[2018-04-21 12:53] VITALS: RESP 16
--- NOTE | 2018-04-21 13:16 | EST ---
EXERCISE STRESS DATE OF SERVICE: 04/21/2018 AGE: 47 SEX: Female HT: 70" WT: 166 pounds PROTOCOL: Lexiscan Cardiolite STAGE: DURATION OF EXERCISE: HEART RATE REST: 54 BLOOD PRESSURE REST: 127/62 MAXIMUM HEART RATE ACHIEVED: 106 MAXIMUM BLOOD PRESSURE: 155/80 85% MPHR: 147 100% MPHR: 173 METS: INDICATIONS: Chest pain. CLINICAL INFORMATION: Baseline rhythm is sinus mechanism, rate 54, normal axis, intervals with nonspecific ST- T wave changes. Baseline blood pressure 127/62 mmHg. Patient received injection of Lexiscan. Electrocardiographic monitoring revealed no evidence of diagnostic ischemic ST deviation. Cardiolite was injected per protocol. CONCLUSION: 1. Nondiagnostic electrocardiograph stress testing. 2. Nuclear images will be reported separately. MMODL / IJN: [id number] /
[2018-04-21 14:28] LABS: Band Neutrophils % 2 %; Eosinophils # (M) 0.05 k/uL (0-0.7); Metamyelocytes # (M) 0.05 k/uL (0); Metamyelocytes % 1 %; Monocytes # (M) 0.31 k/uL (0-1.0); Neutrophils % (M) 26 %
--- NOTE | 2018-04-21 15:31 | US ---
EXAMINATION TYPE: US abdomen complete DATE OF EXAM: 04/21/2018 COMPARISON: CT abdomen and pelvis March 29, 2010 CLINICAL HISTORY: EC patient with nausea, elevated liver and total bilirubin, vomiting, chest pain an d back pain; prior left renal stone; gallbladder removed. EXAM MEASUREMENTS: Liver Length: 15.9 cm Gallbladder Wall: surgically removed CBD: 0.4 cm Spleen: 10.1 cm Right Kidney: 11.1 x 4.8 x 4.1 cm Left Kidney: 10.7 x 5.4 x 4.2 cm Pancreas: wnl Liver: wnl Gallbladder: surgically absent Evidence for sonographic Beach's sign: no CBD: wnl Spleen: wnl Right Kidney: prominent renal pelvis at 1.2cm A/P Left Kidney: possible very small calcifications mid pole Upper IVC: wnl Abd Aorta: size is wnl; intimal wall changes noted mid and distally Suspect redemonstration of left renal calculus. Prominent right renal pelvis without definitive calyc eal dilatation. IMPRESSION: Possible new mild right-sided hydronephrosis or prominent renal pelvis though this is mor e prominent from 2010 CT. Consider obstructing ureter calculus given patient's history especially kno wing history of prior left-sided kidney stones.
--- NOTE | 2018-04-21 17:27 | P.DS ---
Providers Date of admission: 04/20/18 20:59 Expected date of discharge: 04/21/18 Attending physician: Duncan Islas Consults: 04/20/18 20:59 Consult Physician Urgent Consulting Provider: Burke Adams Consult Reason/Comments: unstable angina Do you want consulting provider notified?: Yes 04/21/18 12:32 Consult Physician Routine Consulting Provider: Jeronimo Shah Consult Reason/Comments: elevated total bilirubin, elevated AST and low platelets Do you want consulting provider notified?: Yes Primary care physician: Nataliia Frias [facility] Course: Diagnoses on Discharge: 1. Chest pain. Troponin levels are negative. D-dimer was elevated at 3.10. CTA negative for pulmonary embolism. EKG showing normal sinus rhythm with T- wave abnormality. Chest x-ray completed and was negative for pulmonary disease. 2-D echo completed showing EF of 55-60%. Patient was started on heparin drip. Cardiology services following. Heparin drip has been discontinue by cardiology patient had a stress test which was negative , she was cleared for discharge by cardiology. 2. Nausea and vomiting. Complete ultrasound of abdomen ordered. Amylase and lipase levels also ordered. Abdominal ultrasound revealed right sided hydronephrosis, with possible obstructing ureter calculus. 2. Thromobcytepenia. Platelets 88. Etiology unclear. Ultrasound of abdomen ordered. Heparin drip has been discontinued per cardiology. 3. Elevated liver enzymes and total bilirubin. AST 75 and total bilirubin 2.1. She does report that she is nauseated. Complete ultrasound of abdomen ordered along with amylase and lipase levels done no abnormality in the liver or spleen was found, possible right kidney hydronephrosis discussed in the ultrasound report. [facility]. [facility] Samina Coello is a 47-year-old female patient of Dr. Frias. Patient presented to the emergency room with complaints of chest pain that started in the early hours of Saturday morning. Patient stated pain started out in back radiating to around her chest. Patient states it felt like a band was wrapped around her chest patient has a known past medical history of cholecystectomy and hysterectomy. Patient does ache that she has strong family history of cardiac disease including her father who had open heart surgery at the age of 42. Troponins have been negative. Chest x-ray completed showing normal chest. no Change. Admission d-dimer elevated at 3.10 DT the chest completed was negative for pulmonary embolism. EKG completed showing normal sinus rhythm. T- wave abnormality, consider inferior ischemia. Cardiology services were consulted. 2-D echo completed EF of 55-60%. Patient was started on heparin drip on admission. Heparin drip has been DC'd per cardiology services and planning for a Chemical stress test today. Patient's platelets on admission 90. Denies any signs of active bleeding at this time. Bilirubin increasing to 2.1 and AST 75. Complete abdominal ultrasound has been ordered along with amylase and lipase levels. Patient denies any alcohol consumption. Patient does state she has been nauseous with some emesis yesterday and today. Patient denies shortness of breath. denies any urinary burning or frequency. Patient clinically improved significantly pain has resolved she was able to tolerate diet well without any further episodes of nausea and vomiting. Cardiac tests are within normal limits. Cause of elevated AST and elevated bilirubin is not entirely clear at this time , patient given choice of been admitted to the hospital for follow-up or following up with her primary care physician Dr. Frias for further outpatient testing, she chose to be discharged and follow-up as outpatient. Patient will follow-up with Dr. Nataliia Frias within the next 2-3 days further testing needs to be done in that regard to elevated AST and bilirubin level and in regard to low platelet level Further testing needs to be done also in regard to the right sided hydronephrosis. Patient Condition at Discharge: Fair Plan - Discharge Summary Discharge Rx Participant: No New Discharge Prescriptions: Continue Aspirin EC [Ecotrin] 325 mg PO DAILY PRN PRN Reason: Pain Ibuprofen [Motrin Ib] 600 mg PO TID PRN PRN Reason: Pain Discharge Medication List Aspirin EC [Ecotrin] 325 mg PO DAILY PRN 04/20/18 [History] Ibuprofen [Motrin Ib] 600 mg PO TID PRN 04/20/18 [History] Follow up Appointment(s)/Referral(s): Nataliia Frias DO [Primary Care Provider] - 1-2 days
[2018-04-21 17:57] VITALS: BP 128/74; PULSE 78; TEMP 97.8
[2018-04-22] MEDS ORDERED: FAMOTIDINE 20 MG TAB PO SCH (09:00)
== END 2018-04-21 18:01 | disposition home or self-care (01) | DRG 313 ==
LOC: EC 17:18 → 6SEL 20:59
PROVIDERS: ADMIT Internal Medicine; ATTEND Internal Medicine
DX: R07.89 Other chest pain (principal); N13.30 Unspecified hydronephrosis; D69.6 Thrombocytopenia, unspecified; E80.6 Other disorders of bilirubin metabolism; Z79.82 Long term (current) use of aspirin; Z82.49 Family history of ischemic heart disease and other diseases of the circulatory system; Z90.49 Acquired absence of other specified parts of digestive tract; Z90.710 Acquired absence of both cervix and uterus; Z88.0 Allergy status to penicillin; R11.2 Nausea with vomiting, unspecified; R79.1 Abnormal coagulation profile
CPT/HCPCS: 36415; 71046; 71275; 76700; 78452; 80053; 80061; 82150; 82550; 82553; 83690; 83735; 84484; 85025; 85049; 85379; 85610; 85730; 93005; 93017; 93306; 96365; 96366; 96375; 96376; 99285

== ENCOUNTER → 2018-05-07 | Outpatient (CLI) | payer BC ==
--- NOTE | 2018-05-08 08:00 | CT ---
EXAMINATION TYPE: CT abdomen pelvis w con DATE OF EXAM: 05/07/2018 COMPARISON: 03/29/2010 INDICATION: Hydroureter DLP: 1061 mGycm, Automated exposure control for dose reduction was used. CONTRAST: 100 mL of Isovue 300. Study performed with Oral Contrast TECHNIQUE: Axial images were obtained from above the diaphragm to the pubic rami in the axial plane a t 5 mm thick sections. Reconstructed images are reviewed on the computer in the coronal plane. FINDINGS: Limited CT sections are obtained the lung bases. The lung bases are clear. CT ABDOMEN: Liver: Normal Spleen: Normal Pancreas: Normal Adrenal glands: The adrenal glands are normal. Gallbladder: Surgically absent Kidneys: No masses are evident. No hydronephrosis is present. No cysts are present. Delayed images were obtained through the kidneys, which remain unremarkable. Aorta: Normal Inferior vena cava: Normal. CT PELVIS: Loops of bowel within the abdomen and pelvis are normal. There is some thickening within the distal sigmoid colon. Image 65 series 3. There are loops of bowel which are incompletely distended or lack oral contrast limiting their evaluation. Appendix: Normal as visualized. Urinary bladder: Normal. Genitourinary structures: Adnexal regions appear within normal limits. Some follicles may be present. Uterus is absent. No free fluid is within the pelvis. Osseous structures: No suspicious lytic or sclerotic lesions. IMPRESSIONS: 1. Mild wall thickening which could be related to incomplete distention or mild colitis of the sigmo id colon. 2. No hydronephrosis or hydroureter evident based on current imaging.
== END | disposition home or self-care (01) ==
LOC: RADCTMAIN 12:25
PROVIDERS: ATTEND Family Medicine
DX: K63.89 Other specified diseases of intestine (principal); N13.4 Hydroureter
CPT/HCPCS: 74177; Q9967

== ENCOUNTER → 2018-05-27 | Outpatient (CLI) | payer BC | END | disposition home or self-care (01) | LOC: CPPFTMAIN 14:05 | PROVIDERS: ATTEND Internal Medicine | DX: C95.00 Acute leukemia of unspecified cell type not having achieved remission (principal) | CPT/HCPCS: 94060; 94726; 94729 ==

== ENCOUNTER 2018-06-11 02:22 | Emergency (ER) | payer BC ==
[2018-06-11 02:37] VITALS: TEMP 98.8
[2018-06-11] MEDS ORDERED: SODIUM CHLORIDE 0.9% 500 ML IV SCH (03:15)
[2018-06-11 03:44] LABS: HCT 28.5 % (34.0-46.0); HGB 10.5 gm/dL (11.4-16.0); Hyperchromasia Slight; MCH 32.2 pg (25.0-35.0); MCHC 36.9 g/dL (31.0-37.0); MCV 87.4 fL (80.0-100.0); RBC 3.26 m/uL (3.80-5.40); RDW 14.8 % (11.5-15.5)
[2018-06-11 03:46] LABS: Appearance,Urine Clear (Clear); Bilirubin,Urine Negative (Negative); Blood,Urine Negative (Negative); Color,Urine Yellow; Glucose,Urine (UA) Negative (Negative); Ketones,Urine Negative (Negative); Leukocyte Esterase,Urine Negative (Negative); Nitrite,Urine Negative (Negative); PH, Urine 6.5 (5.0-8.0); Protein,Urine Negative (Negative); Specific Gravity,Urine 1.007 (1.001-1.035); Urobilinogen,Urine <2.0 mg/dL (<2.0)
--- NOTE | 2018-06-11 03:51 | ED ---
Weakness HPI - General Chief complaint: Weakness Stated complaint: Weakness Time Seen by Provider: 06/11/18 02:41 Source: patient, family, EMS Mode of arrival: EMS Limitations: no limitations - History of Present Illness Initial comments: Dizzy 47-year-old female with recently diagnosed a LL for which she is currently undergoing chemotherapy. Patient reports that she began chemotherapy last June 02. She reports that she did well after the chemotherapy. She had a repeat chemotherapy on this June 09. During that treatment she was noted to have low platelets and received a platelet transfusion, she was also noted to be hypertensive and was treated with hydralazine. Patient reports that she's been feeling somewhat fatigued since chemotherapy. She's been monitoring her vital signs at home. She has not had any fevers, she has felt some nausea but not had any vomiting or diarrhea. She's been eating and drinking well. She states that today she was feeling very fatigued and she checked her blood pressure and noted that she had a systolic blood pressure of only 88. She attempted to contact her oncologist at [facility] but was unsuccessful, she contacted their nursing line who advised her to seek care at the nearest emergency department. Upon arrival in the emergency department the patient reports she is feeling much better and her blood pressure is improved. - Related Data Home Medications Medication Instructions Recorded Confirmed Aspirin EC [Ecotrin] 325 mg PO DAILY PRN 04/20/18 04/20/18 Ibuprofen [Motrin Ib] 600 mg PO TID PRN 04/20/18 04/20/18 Allergies Allergy/AdvReac Type Severity Reaction Status Date / Time penicillin G Allergy Unknown Verified 06/11/18 02:37 Review of Systems ROS Statement: Those systems with pertinent positive or pertinent negative responses have been documented in the HPI. ROS Other: All systems not noted in ROS Statement are negative. Past Medical History Past Medical History: GERD/Reflux Additional Past Medical History / Comment(s): "Extra heart beat"-limits caffeine , sinus problems at times, R kidney stone pt passed on her own. leukemia History of Any Multi-Drug Resistant Organisms: None Reported Past Surgical History: Cholecystectomy, Hysterectomy, Tubal Ligation Additional Past Surgical History / Comment(s): Jaw surgery for abnormal bone growth, Past Anesthesia/Blood Transfusion Reactions: Motion Sickness, Postoperative Nausea & Vomiting (PONV) Past Psychological History: No Psychological Hx Reported Smoking Status: Never smoker Past Alcohol Use History: None Reported Past Drug Use History: None Reported - Past Family History Mother Family Medical History: No Reported History Father Family Medical History: Coronary Artery Disease (CAD) Additional Family Medical History / Comment(s): Father had CABG at the age of 47yrs. General Exam - General Exam Comments Initial Comments: GENERAL: Patient is well-developed and well-nourished. Patient is nontoxic appearing. HENT: Normocephalic, Atraumatic. Neck is soft and supple. No significant lymphadenopathy is noted. Oropharynx is clear. Moist mucous membranes. Neck has full range of motion without eliciting any pain. EYES: The sclera were anicteric and conjunctiva were pink and moist. Extraocular movements were intact and pupils were equal round and reactive to light. Eyelids were unremarkable. PULMONARY: Unlabored respirations. Good breath sounds bilaterally. No audible rales rhonchi or wheezing was noted. CARDIOVASCULAR: There is a regular rate and rhythm without any murmurs gallops or rubs. ABDOMEN: Soft and nontender with normal bowel sounds. SKIN: Skin is clear with no lesions or rashes and otherwise unremarkable. PICC line in place in left arm NEUROLOGIC: Patient is alert and oriented x3. Cranial nerves II through XII are grossly intact. Motor and sensory are also intact. Normal speech, volume and content. Symmetrical smile. MUSCULOSKELETAL: Normal extremities with adequate strength and full range of motion. No lower extremity swelling or edema. No calf tenderness. LYMPHATICS: No significant lymphadenopathy is noted PSYCHIATRIC: Normal psychiatric evaluation. Limitations: no limitations Limitations: no limitations Course Vital Signs 06/11/18 06/11/18 02:32 04:11 Temperature 98.8 F Pulse Rate 72 66 Respiratory 18 16 Rate Blood Pressure 119/72 103/75 O2 Sat by Pulse 97 96 Oximetry EKG Findings - EKG Comments: EKG Findings:: EKG obtained at 3:44 AM, rate is 60, rhythm is sinus, normal axis , normal intervals, WV 120, QRS 80, QTC is 448. There is no acute ST elevations or depressions. There is no evidence of acute ischemia or infarction. Medical Decision Making - Medical Decision Making The patient was seen and evaluated, history was obtained from the patient An initial evaluation the patient's quite well appearing considering her medical history, she appears mildly dehydrated, blood pressure is 119 systolic. Heart rate in the 70s. The patient does admit to feeling weak and having hypotension at home. At this time I will pursue a full workup considering that the patient is known to be neutropenic, thrombocytopenic and undergoing chemotherapy for ALL. Labs at baseline - patient with persistent neutropenia, thrombocytopenia improving Persistently elevated transaminases LDH elevated Patient's VS stable in the ER, BP improved after IVF, patient remains afebrile Is also discussed with the patient and her family at bedside. I discussed with him options for admission for further monitoring versus discharge home. At this time the patient would prefer to be discharged home stating that she doesn' t feel staying in the hospital is beneficial considering her immune compromised state. Patient has a close relationship with her oncologist and can follow-up in the next 24 hours. She does have established follow-up for Saturday but we'll culture dated follow up sooner. Return grandmother's were discussed. All questions pertaining care were answered and the patient was discharged home. - Lab Data Result diagrams: 06/11/18 03:28 06/11/18 03:28 Lab Results 06/11/18 06/11/18 06/11/18 Range/Units 03:28 03:28 03:28 WBC 0.4 L* (3.8-10.6) k/uL RBC 3.26 L (3.80-5.40) m/uL Hgb 10.5 L (11.4-16.0) gm/dL Hct 28.5 L (34.0-46.0) % MCV 87.4 (80.0-100.0) fL MCH 32.2 (25.0-35.0) pg MCHC 36.9 (31.0-37.0) g/dL RDW 14.8 (11.5-15.5) % Plt Count 28 L (150-450) k/uL Neutrophils # [employer] Differential Comment Hyperchromasia Slight PT (9.0-12.0) sec INR (<1.2) APTT (22.0-30.0) sec Sodium 132 L (137-145) mmol/L Potassium 3.7 (3.5-5.1) mmol/L Chloride 97 L (98-107) mmol/L Carbon Dioxide 26 (22-30) mmol/L Anion Gap 9 mmol/L BUN 17 (7-17) mg/dL Creatinine 0.55 (0.52-1.04) mg/dL Est GFR (CKD-EPI)AfAm >90 (>60 ml/min/1.73 sqM) Est GFR (CKD-EPI)NonAf >90 (>60 ml/min/1.73 sqM) Glucose 95 (74-99) mg/dL Plasma Lactic Acid José Miguel 1.3 (0.7-2.0) mmol/L Uric Acid 2.4 L (3.7-7.4) mg/dL Calcium 8.7 (8.4-10.2) mg/dL Magnesium 2.2 (1.6-2.3) mg/dL Total Bilirubin 2.6 H (0.2-1.3) mg/dL AST 55 H (14-36) U/L ALT 153 H (9-52) U/L Alkaline Phosphatase 119 (38-126) U/L Lactate Dehydrogenase 1365 H (313-618) U/L Total Protein 5.7 L (6.3-8.2) g/dL Albumin 3.4 L (3.5-5.0) g/dL Urine Color Urine Appearance (Clear) Urine pH (5.0-8.0) Ur Specific [place] (1.001-1.035) Urine Protein (Negative) Urine Glucose (UA) (Negative) Urine Ketones (Negative) Urine Blood (Negative) Urine Nitrite (Negative) Urine Bilirubin (Negative) Urine Urobilinogen (<2.0) mg/dL Ur Leukocyte Esterase (Negative) 06/11/18 06/11/18 Range/Units 03:28 03:28 WBC (3.8-10.6) k/uL RBC (3.80-5.40) m/uL Hgb (11.4-16.0) gm/dL Hct (34.0-46.0) % MCV (80.0-100.0) fL MCH (25.0-35.0) pg MCHC (31.0-37.0) g/dL RDW (11.5-15.5) % Plt Count (150-450) k/uL Neutrophils # Differential Comment Hyperchromasia PT 9.7 (9.0-12.0) sec INR 1.0 (<1.2) APTT 20.3 L (22.0-30.0) sec Sodium (137-145) mmol/L Potassium (3.5-5.1) mmol/L Chloride (98-107) mmol/L Carbon Dioxide (22-30) mmol/L Anion Gap mmol/L BUN (7-17) mg/dL Creatinine (0.52-1.04) mg/dL Est GFR (CKD-EPI)AfAm (>60 ml/min/1.73 sqM) Est GFR (CKD-EPI)NonAf (>60 ml/min/1.73 sqM) Glucose (74-99) mg/dL Plasma Lactic Acid José Miguel (0.7-2.0) mmol/L Uric Acid (3.7-7.4) mg/dL Calcium (8.4-10.2) mg/dL Magnesium (1.6-2.3) mg/dL Total Bilirubin (0.2-1.3) mg/dL AST (14-36) U/L ALT (9-52) U/L Alkaline Phosphatase (38-126) U/L Lactate Dehydrogenase (313-618) U/L Total Protein (6.3-8.2) g/dL Albumin (3.5-5.0) g/dL Urine Color Yellow Urine Appearance Clear (Clear) Urine pH 6.5 (5.0-8.0) Ur Specific [place] 1.007 (1.001-1.035) Urine Protein Negative (Negative) Urine Glucose (UA) Negative (Negative) Urine Ketones Negative (Negative) Urine Blood Negative (Negative) Urine Nitrite Negative (Negative) Urine Bilirubin Negative (Negative) Urine Urobilinogen <2.0 (<2.0) mg/dL Ur Leukocyte Esterase Negative (Negative) Disposition Clinical Impression: Dehydration, Neutropenia, Chemotherapy follow-up examination, ALL (acute lymphoblastic leukemia) Disposition: HOME SELF-CARE Condition: Stable Is patient prescribed a controlled substance at d/c from ED?: No Referrals: Nataliia Frias DO [Primary Care Provider] - 1-2 days
[2018-06-11 03:53] LABS: WBC 0.4 k/uL (3.8-10.6)
[2018-06-11 03:56] LABS: ALT 153 U/L (9-52); AST 55 U/L (14-36); Albumin 3.4 g/dL (3.5-5.0); Alkaline Phosphatase 119 U/L (38-126); Anion Gap 9 mmol/L; Blood Urea Nitrogen 17 mg/dL (7-17); Calcium 8.7 mg/dL (8.4-10.2); Carbon Dioxide 26 mmol/L (22-30); Chloride 97 mmol/L (98-107); Glucose 95 mg/dL (74-99); LDH 1365 U/L (313-618); Magnesium 2.2 mg/dL (1.6-2.3); Potassium 3.7 mmol/L (3.5-5.1); Sodium 132 mmol/L (137-145); Total Bilirubin 2.6 mg/dL (0.2-1.3); Total Protein 5.7 g/dL (6.3-8.2); Uric Acid 2.4 mg/dL (3.7-7.4)
[2018-06-11 04:04] LABS: Prothrombin Time 9.7 sec (9.0-12.0)
[2018-06-11 04:11] VITALS: BP 103/75; PULSE 66; RESP 16
[2018-06-11 04:11] LABS: Platelet Count 28 k/uL (150-450)
[2018-06-11 04:18] LABS: Partial Thromboplastin Time 20.3 sec (22.0-30.0)
== END 2018-06-11 04:51 | disposition home or self-care (01) ==
LOC: EC 02:22
DX: C91.00 Acute lymphoblastic leukemia not having achieved remission (principal); D70.9 Neutropenia, unspecified; E86.0 Dehydration; D69.6 Thrombocytopenia, unspecified; R74.0 Nonspecific elevation of levels of transaminase and lactic acid dehydrogenase [LDH]; Z92.21 Personal history of antineoplastic chemotherapy; Z88.0 Allergy status to penicillin
CPT/HCPCS: 36415; 80053; 81003; 83605; 83615; 83735; 84550; 85025; 85610; 85730; 87040; 87086; 99285

== ENCOUNTER 2018-09-12 12:42 | Day surgery (SDC) | payer BC ==
[2018-09-12 13:35] LABS: Platelet Count 164 k/uL (150-450)
[2018-09-12 13:43] LABS: Prothrombin Time 10.8 sec (9.0-12.0)
[2018-09-12 13:54] VITALS: BP 124/69; PULSE 102; RESP 16; TEMP 97.6
--- NOTE | 2018-09-12 14:30 | US ---
Discontinued paracentesis HISTORY: Liver failure, ascites Small amount of ascites is noted. Following discussion with the patient, she has elected to defer par acentesis at this time
== END 2018-09-12 14:35 | disposition home or self-care (01) ==
LOC: RADPROMAIN 12:42
PROVIDERS: ATTEND Physician Assistant
DX: R18.8 Other ascites (principal); K72.90 Hepatic failure, unspecified without coma; Z53.8 Procedure and treatment not carried out for other reasons
CPT/HCPCS: 76705; 85049; 85610

== ENCOUNTER 2018-09-18 08:52 | Day surgery (SDC) | payer BC ==
[2018-09-18 09:21] VITALS: BP 155/82; PULSE 91; RESP 14; TEMP 98.4
--- NOTE | 2018-09-18 12:39 | US ---
Discontinued paracentesis HISTORY: Ascites Small amount of fluid is noted. Patient defers paracentesis at this time.
== END 2018-09-18 10:15 | disposition home or self-care (01) ==
LOC: RADPROMAIN 08:52
PROVIDERS: ATTEND Family Medicine
DX: R18.8 Other ascites (principal); Z53.8 Procedure and treatment not carried out for other reasons; K72.90 Hepatic failure, unspecified without coma
CPT/HCPCS: 76705

== ENCOUNTER → 2018-10-06 | Outpatient (CLI) | payer BC ==
[2018-10-06 13:34] LABS: Prothrombin Time 10.3 sec (9.0-12.0)
[2018-10-06 13:37] LABS: Anisocytosis Slight; Basophils % (A) 1 %; Eosinophils # (A) 0.1 k/uL (0-0.7); Eosinophils % (A) 2 %; HCT 36.8 % (34.0-46.0); HGB 11.9 gm/dL (11.4-16.0); Lymphocytes # (A) 1.6 k/uL (1.0-4.8); Lymphocytes % (A) 29 %; MCH 35.1 pg (25.0-35.0); MCHC 32.5 g/dL (31.0-37.0); Macrocytosis Marked; Mean Platelet Volume 7.4; Monocytes # (A) 0.4 k/uL (0-1.0); Monocytes % (A) 8 %; Neutrophils # (A) 3.2 k/uL (1.3-7.7); Neutrophils % (A) 57 %; Platelet Count 216 k/uL (150-450); RDW 16.6 % (11.5-15.5); WBC 5.5 k/uL (3.8-10.6)
[2018-10-06 14:18] LABS: MCV 108.1 fL (80.0-100.0)
[2018-10-06 21:24] LABS: Albumin 3.1 g/dL (3.80-4.90); Albumin/Globulin Ratio 1.94 (1.60-3.17); Anion Gap 14.4 mmol/L (4.00-12.00); Bilirubin, Conjugated 8.5 mg/dL (0.20-0.40); Bilirubin,Unconjugated 2.4 mg/dL; Calcium 8.8 mg/dL (8.7-10.3); Carbon Dioxide 20.6 mmol/L (21.6-31.8); Globulin 1.6 g/dL (1.6-3.3); Potassium 4.2 mmol/L (3.5-5.5); Total Bilirubin 10.9 mg/dL (0.2-1.2); Total Protein 4.7 g/dL (6.2-8.2)
== END | disposition home or self-care (01) ==
LOC: LABWHC1 11:29
DX: T50.905D Adverse effect of unspecified drugs, medicaments and biological substances, subsequent encounter (principal)
CPT/HCPCS: 36415; 80053; 82140; 82248; 85025; 85610

== ENCOUNTER → 2018-11-03 | Outpatient (CLI) | payer BC ==
[2018-11-03 09:02] LABS: INR 0.9 (<1.2); Prothrombin Time 10.2 sec (9.0-12.0)
[2018-11-03 09:06] LABS: Basophils % (A) 0 %; Eosinophils # (A) 0.2 k/uL (0-0.7); Eosinophils % (A) 3 %; HCT 41.9 % (34.0-46.0); HGB 13.9 gm/dL (11.4-16.0); Lymphocytes # (A) 1.5 k/uL (1.0-4.8); Lymphocytes % (A) 32 %; MCH 34.2 pg (25.0-35.0); MCHC 33.1 g/dL (31.0-37.0); MCV 103.4 fL (80.0-100.0); Macrocytosis Slight; Mean Platelet Volume 6.5; Monocytes # (A) 0.5 k/uL (0-1.0); Monocytes % (A) 10 %; Neutrophils # (A) 2.4 k/uL (1.3-7.7); Neutrophils % (A) 51 %; Platelet Count 179 k/uL (150-450); RBC 4.05 m/uL (3.80-5.40); RDW 14.6 % (11.5-15.5); WBC 4.8 k/uL (3.8-10.6)
[2018-11-03 18:19] LABS: Albumin 4.2 g/dL (3.80-4.90); Albumin/Globulin Ratio 2.47 (1.60-3.17); Anion Gap 10.7 mmol/L (4.00-12.00); Calcium 10.2 mg/dL (8.7-10.3); Carbon Dioxide 23.3 mmol/L (21.6-31.8); Globulin 1.7 g/dL (1.6-3.3); Total Bilirubin 3.7 mg/dL (0.3-1.2); Total Protein 5.9 g/dL (6.2-8.2)
== END | disposition home or self-care (01) ==
LOC: LABWHC1 08:25
DX: R17 Unspecified jaundice (principal); T50.905D Adverse effect of unspecified drugs, medicaments and biological substances, subsequent encounter
CPT/HCPCS: 36415; 80053; 82140; 85025; 85610

== ENCOUNTER → 2019-01-05 | Outpatient (CLI) | payer BC ==
[2019-01-05 10:31] LABS: Basophils % (A) 0 %; Eosinophils # (A) 0.2 k/uL (0-0.7); Eosinophils % (A) 2 %; HCT 41.6 % (34.0-46.0); HGB 13.8 gm/dL (11.4-16.0); Lymphocytes % (A) 25 %; MCH 30.8 pg (25.0-35.0); MCHC 33.2 g/dL (31.0-37.0); Mean Platelet Volume 7.4; Monocytes # (A) 0.4 k/uL (0-1.0); Monocytes % (A) 5 %; Neutrophils # (A) 5.4 k/uL (1.3-7.7); Neutrophils % (A) 66 %; Platelet Count 229 k/uL (150-450); RBC 4.48 m/uL (3.80-5.40); RDW 14.3 % (11.5-15.5); WBC 8.2 k/uL (3.8-10.6)
[2019-01-05 10:40] LABS: MCV 92.8 fL (80.0-100.0)
[2019-01-05 17:09] LABS: Albumin 4.5 g/dL (3.80-4.90); Albumin/Globulin Ratio 3.75 (1.60-3.17); Anion Gap 8.8 mmol/L (4.00-12.00); Calcium 10.1 mg/dL (8.7-10.3); Carbon Dioxide 25.2 mmol/L (21.6-31.8); Globulin 1.2 g/dL (1.6-3.3); Potassium 4.5 mmol/L (3.5-5.5); Total Bilirubin 1.3 mg/dL (0.2-1.2); Total Protein 5.7 g/dL (6.2-8.2)
== END | disposition home or self-care (01) ==
LOC: LABWHC1 09:33
DX: T50.905D Adverse effect of unspecified drugs, medicaments and biological substances, subsequent encounter (principal)
CPT/HCPCS: 36415; 80053; 82140; 85025

== ENCOUNTER → 2019-10-26 | Outpatient (CLI) | payer BC ==
[2019-10-26 17:16] LABS: HCT 34.3 % (34.0-46.0); HGB 11.2 gm/dL (11.4-16.0); MCHC 32.6 g/dL (31.0-37.0); MCV 107.3 fL (80.0-100.0); Macrocytosis Moderate; Mean Platelet Volume 8.3; RDW 13.8 % (11.5-15.5)
[2019-10-26 17:17] LABS: Platelet Count 98 k/uL (150-450)
[2019-10-27 01:11] LABS: Hemoglobin A1C 3.9 % (4.0-6.0)
[2019-10-27 01:57] LABS: African American GFR (CKD) 43.4 (60.0-200.0); Albumin 4.7 g/dL (3.80-4.90); Albumin/Globulin Ratio 4.7 (1.60-3.17); Anion Gap 10.1 mmol/L (4.00-12.00); BUN/Creat Ratio 21.88 Ratio (12.00-20.00); Calcium 9.9 mg/dL (8.7-10.3); Carbon Dioxide 21.9 mmol/L (21.6-31.8); Chol/HDL Ratio 2.34; LDL Cholesterol,Calculated 106.2 mg/dL (0.0-131.0); Non-African American GFR(CKD) 37.4 (60.0-200.0); Potassium 4.5 mmol/L (3.5-5.5); Total Bilirubin 2.2 mg/dL (0.3-1.2); Total Protein 5.7 g/dL (6.2-8.2); VLDL Calculation 19.8 mg/dL (5.00-40.00)
== END | disposition home or self-care (01) ==
LOC: LABWHC1 15:42
PROVIDERS: ATTEND Nurse Practitioner Family
DX: R19.7 Diarrhea, unspecified (principal)
CPT/HCPCS: 36415; 80053; 80061; 83036; 84443; 85027; 87045; 87046; 87324; 87328; 87329

== ENCOUNTER → 2019-11-05 | Outpatient (CLI) | payer BC ==
[2019-11-05 17:15] LABS: African American GFR (CKD) 55.8 (60.0-200.0); Albumin 3.8 g/dL (3.80-4.90); Albumin/Globulin Ratio 3.8 (1.60-3.17); Anion Gap 7.7 mmol/L (4.00-12.00); BUN/Creat Ratio 20.77 Ratio (12.00-20.00); Calcium 9.2 mg/dL (8.7-10.3); Carbon Dioxide 24.3 mmol/L (21.6-31.8); Non-African American GFR(CKD) 48.1 (60.0-200.0); Potassium 4.6 mmol/L (3.5-5.5); Total Bilirubin 1.7 mg/dL (0.2-1.2); Total Protein 4.8 g/dL (6.2-8.2)
== END | disposition home or self-care (01) ==
LOC: LABWHC1 08:43
PROVIDERS: ATTEND Nurse Practitioner
DX: C91.00 Acute lymphoblastic leukemia not having achieved remission (principal)
CPT/HCPCS: 36415; 80053

== ENCOUNTER 2020-01-02 11:34 | Emergency (ER) | payer BC ==
[2020-01-02 11:39] VITALS: RESP 18; TEMP 98.4
[2020-01-02] MEDS ORDERED: SODIUM CHLORIDE 0.9% 1,000 ML IV STA (11:58)
[2020-01-02] MEDS ORDERED: LABETALOL 5 MG/ML VIAL MDV IVP STA (12:09)
--- NOTE | 2020-01-02 12:17 | ED ---
General Adult HPI - General Source: patient, RN notes reviewed, old records reviewed Mode of arrival: ambulatory Limitations: no limitations <Jennifer aDvid - Last Filed: 01/02/20 14:35> <Remy Cortes - Last Filed: 01/02/20 14:49> - General Chief complaint: Recheck/Abnormal Lab/Rx Stated complaint: High blood pressure Time Seen by Provider: 01/02/20 11:41 - History of Present Illness Initial comments: Patient is a 49-year-old female presents emergency department today for evaluation with chief complaint of hypertension and complaining of a headache the past 2 days. Patient describes the headache as pulsatile and waxing and waning. Patient reports no thunderclap headache. 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 She states that she randomly decided to check her blood pressure this week and was noted to be elevated with blood pressures of 180/100 periodically. She followed up with her primary care doctor in about started on lisinopril on Saturday of this week. She reports she's been taking this for the past 2 days. Patient states that she started developing a headache, and was having some nausea and vomiting related to the pain of the headache. She called her oncologist who told her to come to the ER for evaluation. She denies any specific weakness, lack of coordination or visual changes. She reports history of bad headaches in the past. She has been taking tylenol. 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 (Jennifer David) - Related Data Home Medications Medication Instructions Recorded Confirmed Acyclovir [Zovirax] 800 mg PO BID 01/02/20 01/02/20 Atovaquone 750mg/5ml Susp 1,500 mg PO DAILY 01/02/20 01/02/20 Lisinopril [Prinivil] 10 mg PO DAILY 01/02/20 01/02/20 Multivitamins, Thera [Multivitamin 1 tab PO DAILY 01/02/20 01/02/20 (formulary)] Ursodiol 300 mg PO BID 01/02/20 01/02/20 Allergies Allergy/AdvReac Type Severity Reaction Status Date / Time penicillin G Allergy Unknown Verified 01/02/20 14:19 Review of Systems ROS Other: All systems not noted in ROS Statement are negative. <Jennifer David - Last Filed: 01/02/20 14:35> ROS Other: All systems not noted in ROS Statement are negative. <Remy Cortes - Last Filed: 01/02/20 14:49> ROS Statement: Those systems with pertinent positive or pertinent negative responses have been documented in the HPI. Past Medical History Past Medical History: Cancer, GERD/Reflux, Pulmonary Embolus (PE) Additional Past Medical History / Comment(s): "Extra heart beat"-limits caffeine, sinus problems at times, kidney stones, leukemia , blood clot left arm & PE, frequent vomiting, "chemo has damaged my liver", fluid retention History of Any Multi-Drug Resistant Organisms: None Reported Past Surgical History: Cholecystectomy, Hysterectomy, Tubal Ligation Additional Past Surgical History / Comment(s): Jaw surgery for abnormal bone growth, liver biopsy Past Anesthesia/Blood Transfusion Reactions: Motion Sickness, Postoperative Nausea & Vomiting (PONV) Past Psychological History: No Psychological Hx Reported Smoking Status: Never smoker Past Alcohol Use History: None Reported Past Drug Use History: None Reported - Past Family History Mother Family Medical History: No Reported History Father Family Medical History: Coronary Artery Disease (CAD) Additional Family Medical History / Comment(s): Father had CABG at the age of 47yrs. <TonyjoneJennifer - Last Filed: 01/02/20 14:35> General Exam Limitations: no limitations General appearance: alert, in no apparent distress Head exam: Present: atraumatic, normocephalic, normal inspection Eye exam: Present: normal appearance, PERRL, EOMI. Absent: scleral icterus, conjunctival injection, periorbital swelling ENT exam: Present: normal exam, mucous membranes moist Neck exam: Present: normal inspection. Absent: tenderness, meningismus, lymphadenopathy Respiratory exam: Present: normal lung sounds bilaterally. Absent: respiratory distress, wheezes, rales, rhonchi, stridor Cardiovascular Exam: Present: regular rate GI/Abdominal exam: Present: soft, normal bowel sounds. Absent: distended, tenderness, guarding, rebound, rigid Extremities exam: Present: normal inspection, full ROM, normal capillary refill. Absent: tenderness, pedal edema, joint swelling, calf tenderness Back exam: Present: normal inspection, full ROM Neurological exam: Present: alert, oriented X3, CN II-XII intact Expanded Patient oriented to: Present: person, place, time Speech: Present: fluid speech Cranial nerves: EOM's Intact: Normal Cerebellar function: Finger to Nose: Normal Upper motor neuron: Pronator Drift: Normal Sensory exam: Upper Extremity Light Touch: Normal, Lower Extremity Light Touch: Normal Motor strength exam: RUE: 5, LUE: 5, RLE: 5, LLE: 5 Eye Response: (4) open spontaneously Motor Response: (6) obeys commands Verbal Response: (5) oriented Coden Total: 15 Psychiatric exam: Present: normal affect, normal mood Skin exam: Present: warm, dry, intact, normal color. Absent: rash <Jennifer David - Last Filed: 01/02/20 14:35> - General Exam Comments Initial Comments: Pleasant and joking 49-year-old female. No distress. (Jennifer David) Course <Jennifer David - Last Filed: 01/02/20 14:35> Vital Signs 01/02/20 01/02/20 01/02/20 11:36 12:30 13:06 Temperature 98.4 F Pulse Rate 91 79 92 Pulse Rate [ Energy Economist ] Respiratory 18 18 18 Rate Blood Pressure 185/112 173/117 171/107 O2 Sat by Pulse 99 98 99 Oximetry 01/02/20 13:33 Temperature Pulse Rate Pulse Rate [ 78 Energy Economist ] Respiratory Rate Blood Pressure O2 Sat by Pulse Oximetry - Reevaluation(s) Reevaluation #1: 01/02/20 14:31 Patient was sleeping on reevaluation and resting comfortably in bed and sleeping, and easily able to awaken. Reports her headache somewhat diminished at this time, 09/11. (Jennifer David) Medical Decision Making - Lab Data Result diagrams: 01/02/20 12:30 01/02/20 12:30 - Radiology Data Radiology results: report reviewed <Jennifer David - Last Filed: 01/02/20 14:35> - Lab Data Result diagrams: 01/02/20 12:30 01/02/20 12:30 <Remy Cortes - Last Filed: 01/02/20 14:49> - Medical Decision Making This Patient is a 49-year-old female, presents emergency Department today with complaint of a headache for 2 days. She states that she incidentally found to be hypertensive last week and started on new blood pressure medication by PCP on Saturday. Patient reports emergency department today with concern for her headache the past 2 days associated with her high blood pressure also complaining of some vomiting related to the headache pain. Patient was on a hypertensive blood pressure 185/112. Patient is given IV and lab work obtained. EKG was reviewed negative for acute process. She denies any chest pain or other complaints. Patient reports is relatively benign headache at this time. Patient does complain seems to be waxing and waning. At this and she has no acute neurological deficits. Patient's blood work was reviewed. She does have slight decrease in hemoglobin of 9.5. Patient reports that this is been chronic. I did mention low platelets at 66 and she states that that has also been stable. At this time Patient does have a slightly elevated BUN/creatinine. I did inform Patient of this. I discussed the concern of possibility that the headache was related to the high blood pressure. Patient was given a milligrams of IV labetalol and blood pressure did decrease to now 150/100. She was resting on reevaluation and stated that her headache diminished and sleeping. Again no neurological deficits. Patient was informed a normal CTA. Discussed case with Dr. Cortes, whom also examined the patient. Patient will be managed by Dr. Cortes at 2:40 p.m. (Jennifer David) PA attestation: I, Dr. Remy Cortes, personally saw and examined the patient. I have reviewed and agree with the resident/PA findings, including all diagnostic interpretations and treatment plans as written unless otherwise stated. I was present for the aquino portions of any procedures performed and inclusive time noted for any critical care statement. 49-year-old female sent in by physician for headache and high blood pressure. Patient's headache is benign. She's had headaches like this in the past. She forgot she had high blood pressure after she was playing around blood pressure cuff with her . She is presented blood pressure was found to be high. Extensive workup was performed by physician agency sales management assistant. Patient evaluated at bedside stable condition. At this point highly doubt definitely life- threatening emergency at this time. Patient discharged. She is told to follow-up with her primary care physician or which ever physician is managing her hypertension at this time. Return parameters discussed. Patient had long conversation about things that exacerbate elevated blood pressure including has s salt diet, timing containing foods and stimulated ingredients. Patient clear for discharge. Return parameters discussed. (Remy Cortes) - Lab Data Lab Results 01/02/20 01/02/20 01/02/20 Range/Units 12:30 12:30 12:30 WBC 5.8 (3.8-10.6) k/uL RBC 2.79 L (3.80-5.40) m/uL Hgb 9.5 L (11.4-16.0) gm/dL Hct 29.9 L (34.0-46.0) % MCV 107.0 H (80.0-100.0) fL MCH 33.9 (25.0-35.0) pg MCHC 31.7 (31.0-37.0) g/dL RDW 15.1 (11.5-15.5) % Plt Count 66 L (150-450) k/uL Neutrophils % 51 % Lymphocytes % 37 % Monocytes % 6 % Eosinophils % 3 % Basophils % 1 % Neutrophils # 3.0 (1.3-7.7) k/uL Lymphocytes # 2.1 (1.0-4.8) k/uL Monocytes # 0.4 (0-1.0) k/uL Eosinophils # 0.2 (0-0.7) k/uL Basophils # 0.0 (0-0.2) k/uL Manual Slide Review Performed Macrocytosis Moderate PT 9.7 (9.0-12.0) sec INR 0.9 (<1.2) APTT 22.0 (22.0-30.0) sec Sodium 139 (137-145) mmol/L Potassium 4.6 (3.5-5.1) mmol/L Chloride 112 H (98-107) mmol/L Carbon Dioxide 21 L (22-30) mmol/L Anion Gap 6 mmol/L BUN 38 H (7-17) mg/dL Creatinine 1.37 H (0.52-1.04) mg/dL Est GFR (CKD-EPI)AfAm 52 (>60 ml/min/1.73 sqM) Est GFR (CKD-EPI)NonAf 46 (>60 ml/min/1.73 sqM) Glucose 94 (74-99) mg/dL Calcium 9.6 (8.4-10.2) mg/dL Magnesium 2.3 (1.6-2.3) mg/dL Total Bilirubin 2.2 H (0.2-1.3) mg/dL AST 33 (14-36) U/L ALT 29 (4-34) U/L Alkaline Phosphatase 257 H (38-126) U/L Troponin I (0.000-0.034) ng/mL NT-Pro-B Natriuret Pep pg/mL Total Protein 6.0 L (6.3-8.2) g/dL Albumin 3.9 (3.5-5.0) g/dL Lipase 221 (23-300) U/L Urine Color Urine Appearance (Clear) Urine pH (5.0-8.0) Ur Specific [place] (1.001-1.035) Urine Protein (Negative) Urine Glucose (UA) (Negative) Urine Ketones (Negative) Urine Blood (Negative) Urine Nitrite (Negative) Urine Bilirubin (Negative) Urine Urobilinogen (<2.0) mg/dL Ur Leukocyte Esterase (Negative) Urine RBC (0-5) /hpf Urine WBC (0-5) /hpf Ur Squamous Epith Cells (0-4) /hpf Hyaline Casts (0-2) /lpf Urine Mucus (None) /hpf 01/02/20 01/02/20 01/02/20 Range/Units 12:30 12:30 14:00 WBC (3.8-10.6) k/uL RBC (3.80-5.40) m/uL Hgb (11.4-16.0) gm/dL Hct (34.0-46.0) % MCV (80.0-100.0) fL MCH (25.0-35.0) pg MCHC (31.0-37.0) g/dL RDW (11.5-15.5) % Plt Count (150-450) k/uL Neutrophils % % Lymphocytes % % Monocytes % % Eosinophils % % Basophils % % Neutrophils # (1.3-7.7) k/uL Lymphocytes # (1.0-4.8) k/uL Monocytes # (0-1.0) k/uL Eosinophils # (0-0.7) k/uL Basophils # (0-0.2) k/uL Manual Slide Review Macrocytosis PT (9.0-12.0) sec INR (<1.2) APTT (22.0-30.0) sec Sodium (137-145) mmol/L Potassium (3.5-5.1) mmol/L Chloride (98-107) mmol/L Carbon Dioxide (22-30) mmol/L Anion Gap mmol/L BUN (7-17) mg/dL Creatinine (0.52-1.04) mg/dL Est GFR (CKD-EPI)AfAm (>60 ml/min/1.73 sqM) Est GFR (CKD-EPI)NonAf (>60 ml/min/1.73 sqM) Glucose (74-99) mg/dL Calcium (8.4-10.2) mg/dL Magnesium (1.6-2.3) mg/dL Total Bilirubin (0.2-1.3) mg/dL AST (14-36) U/L ALT (4-34) U/L Alkaline Phosphatase (38-126) U/L Troponin I <0.012 (0.000-0.034) ng/mL NT-Pro-B Natriuret Pep 2010 pg/mL Total Protein (6.3-8.2) g/dL Albumin (3.5-5.0) g/dL Lipase (23-300) U/L Urine Color Light Yellow Urine Appearance Clear (Clear) Urine pH 5.5 (5.0-8.0) Ur Specific [place] 1.012 (1.001-1.035) Urine Protein 2+ H (Negative) Urine Glucose (UA) Negative (Negative) Urine Ketones Negative (Negative) Urine Blood Small H (Negative) Urine Nitrite Negative (Negative) Urine Bilirubin Negative (Negative) Urine Urobilinogen <2.0 (<2.0) mg/dL Ur Leukocyte Esterase Negative (Negative) Urine RBC 2 (0-5) /hpf Urine WBC 2 (0-5) /hpf Ur Squamous Epith Cells <1 (0-4) /hpf Hyaline Casts 1 (0-2) /lpf Urine Mucus Rare H (None) /hpf - Radiology Data Normal CTA [place]. Chest x-ray is negative for any acute process. (Aranyos,Jennifer) Disposition <Jennifer David - Last Filed: 01/02/20 14:35> Is patient prescribed a controlled substance at d/c from ED?: No Time of Disposition: 14:49 <Remy Cortes - Last Filed: 01/02/20 14:49> Clinical Impression: Hypertension Disposition: HOME SELF-CARE Condition: Good Instructions (If sedation given, give patient instructions): Hypertension (ED) Referrals: Nataliia Frias DO [Primary Care Provider] - 1-2 days
[2020-01-02 12:45] LABS: Basophils % (A) 1 %; Eosinophils # (A) 0.2 k/uL (0-0.7); Eosinophils % (A) 3 %; HCT 29.9 % (34.0-46.0); HGB 9.5 gm/dL (11.4-16.0); Lymphocytes # (A) 2.1 k/uL (1.0-4.8); Lymphocytes % (A) 37 %; MCH 33.9 pg (25.0-35.0); MCHC 31.7 g/dL (31.0-37.0); Macrocytosis Moderate; Mean Platelet Volume 8.2; Monocytes # (A) 0.4 k/uL (0-1.0); Monocytes % (A) 6 %; Neutrophils % (A) 51 %; RBC 2.79 m/uL (3.80-5.40); RDW 15.1 % (11.5-15.5); WBC 5.8 k/uL (3.8-10.6)
--- NOTE | 2020-01-02 12:54 | XR ---
EXAMINATION TYPE: XR chest 2V DATE OF EXAM: 01/02/2020 HISTORY: Chest Pain. REFERENCE: Previous study dated 04/20/2018. FINDINGS: The lungs remain clear. Pleural spaces are clear. Heart size is within normal limits. IMPRESSION: NORMAL CHEST.
[2020-01-02 12:58] LABS: Albumin 3.9 g/dL (3.5-5.0); Calcium 9.6 mg/dL (8.4-10.2); Magnesium 2.3 mg/dL (1.6-2.3); Potassium 4.6 mmol/L (3.5-5.1); Total Bilirubin 2.2 mg/dL (0.2-1.3)
[2020-01-02 13:04] LABS: INR 0.9 (<1.2); Prothrombin Time 9.7 sec (9.0-12.0)
[2020-01-02 13:28] LABS: Platelet Count 66 k/uL (150-450)
--- NOTE | 2020-01-02 13:54 | CT ---
EXAMINATION TYPE: CT angio head DATE OF EXAM: 01/02/2020 1:13 PM COMPARISON: None HISTORY: Headache and hypertension CT DLP: 2172 mGycm Automated exposure control for dose reduction was used. TECHNIQUE: Performed with IV Contrast, patient injected with 100 mL of Isovue 370. FINDINGS: Central structures are midline. There is no evidence of hydrocephalus. No acute focal lesio n, mass effect or midline shift is seen. I do not see evidence of intracranial blood. Visualized portions of the paranasal sinuses and mastoids are clear. The bony calvarium IMPRESSION: NORMAL CTA OF [place].
[2020-01-02 14:29] LABS: Appearance,Urine Clear (Clear); Bilirubin,Urine Negative (Negative); Blood,Urine Small (Negative); Color,Urine Light Yellow; Glucose,Urine (UA) Negative (Negative); Hyaline Casts,Urine 1 /lpf (0-2); Ketones,Urine Negative (Negative); Leukocyte Esterase,Urine Negative (Negative); Mucus,Urine Rare /hpf; Nitrite,Urine Negative (Negative); PH, Urine 5.5 (5.0-8.0); Protein,Urine 2+ (Negative); RBC,Urine 2 /hpf (0-5); Specific Gravity,Urine 1.012 (1.001-1.035); Squamous Epithelial Cell,Urine <1 /hpf (0-4); Urobilinogen,Urine <2.0 mg/dL (<2.0); WBC,Urine 2 /hpf (0-5)
[2020-01-02 15:06] VITALS: BP 149/99; PULSE 71
== END 2020-01-02 15:06 | disposition home or self-care (01) ==
LOC: EC 11:34
DX: I10 Essential (primary) hypertension (principal); R11.2 Nausea with vomiting, unspecified; Z79.899 Other long term (current) drug therapy; Z88.0 Allergy status to penicillin; Z86.711 Personal history of pulmonary embolism; Z94.81 Bone marrow transplant status; Z85.6 Personal history of leukemia
CPT/HCPCS: 96374; 96361; 99284; 36415; 93005; 83880; 80053; 83690; 83735; 84484; 85025; 85610; 85730; 81001; 71046; 70496; Q9967

== ENCOUNTER → 2022-07-27 | Outpatient (CLI) | payer BC ==
--- NOTE | 2022-07-30 09:05 | MM ---
Reason for Exam: Screening (asymptomatic). Last mammogram was performed 4 year(s) and 5 month(s) ago. Patient History: Menarche at age 13. First Full-Term at age 19. Hysterectomy at age 37. Maternal aunt had breast cancer. Risk Values: Amber 5 year model risk: 0.7%. NCI Lifetime model risk: 6.4%. Prior Study Comparison: 01/29/2017 Bilateral Diagnostic Mammogram, [facility]. 08/07/2017 Left Diagnostic Mammogram, [facility]. 02/28/2018 Bilateral Screening Mammogram, [facility]. Tissue Density: The breast tissue is heterogeneously dense. This may lower the sensitivity of mammography. Findings: Analyzed By CAD. Benign-appearing vascular calcifications bilaterally is redemonstrated. A few benign-appearing punctate calcifications within the bilateral breasts are redemonstrated. There is no suspicious new group of microcalcifications or new suspicious mass in either breast. Overall Assessment: Benign, BI-RAD 2 Management: Screening Mammogram of both breasts in 1 year. A clinical breast exam by your physician is recommended on an annual basis and results should be correlated with mammographic findings. Electronically signed and approved by: Sameer Stovall M.D.
== END | disposition home or self-care (01) ==
LOC: RADMAMWWP 07:39
PROVIDERS: ATTEND Family Medicine
DX: Z12.31 Encounter for screening mammogram for malignant neoplasm of breast (principal); N95.1 Menopausal and female climacteric states; Z80.3 Family history of malignant neoplasm of breast
CPT/HCPCS: 77067

== ENCOUNTER → 2022-08-03 | Outpatient (CLI) | payer BC ==
--- NOTE | 2022-08-03 14:06 | CT ---
EXAMINATION TYPE: CT facial bones wo con DATE OF EXAM: 08/03/2022 COMPARISON: HISTORY: sinusitis x8 months CT DLP: 636.4 mGycm Automated exposure control for dose reduction was used. TECHNIQUE: CT scan of the sinuses is performed without contrast, axial images are obtained, coronal r eformatted images are also reviewed. FINDINGS: There is marked opacification of the frontal, ethmoid, maxillary and sphenoid sinuses bilaterally. Th ere are air-fluid levels in the maxillary sinuses indicating acute sinusitis. The ostomy immune compl exes are occluded by the inflammatory process. The intraorbital contents appear normal and symmetric. The nasal cavity is intact. The mastoid air cells and middle ear cavities are well aerated. The osseous structures are intact. IMPRESSION: Acute pansinusitis.
== END | disposition home or self-care (01) ==
LOC: RADCTMAIN 12:14
PROVIDERS: ATTEND Family Medicine
DX: J01.40 Acute pansinusitis, unspecified (principal); J40 Bronchitis, not specified as acute or chronic
CPT/HCPCS: 70486

== ENCOUNTER 2022-08-26 06:55 | Emergency (ER) | payer BC ==
[2022-08-26] MEDS ORDERED: SODIUM CHLORIDE 0.9% 1,000 ML IV ONE (07:30)
[2022-08-26] MEDS ORDERED: SODIUM CHLORIDE 0.9% 500 ML 500 ML IV ONE (07:30)
[2022-08-26] MEDS ORDERED: ACETAMINOPHEN TAB 500 MG TAB PO STA (07:30)
[2022-08-26] MEDS ORDERED: ONDANSETRON 4 MG/2 ML VIAL IVP STA (07:30)
--- NOTE | 2022-08-26 07:34 | ED ---
General Adult HPI - General Chief complaint: Nausea/Vomiting/Diarrhea Stated complaint: NVD, cancer pt Time Seen by Provider: 08/26/22 07:00 Source: patient, RN notes reviewed, old records reviewed Mode of arrival: ambulatory Limitations: no limitations - History of Present Illness Initial comments: This a 51-year-old female who presents emergency Department with a past medical history significant for leukemia. Patient states the last few days she has been having nausea vomiting diarrhea. Patient states she does not have any specific area of pain but she is concerned she is getting dehydrated. Patient states she had chemo the last time 4 years ago. 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 Patient states she did not supposed take Motrin because of her kidney failure. Patient was unaware that she had a temper ature. Patient denies any cough. Patient denies any chest pain or difficulty breathing. Patient states she did not get the flu shot. Patient denies any dysuria hematuria urinary frequency. - Related Data Home Medications Medication Instructions Recorded Confirmed Acyclovir [Zovirax] 800 mg PO BID 01/02/20 01/02/20 Atovaquone 750mg/5ml Susp 1,500 mg PO DAILY 01/02/20 01/02/20 Multivitamins, Thera [Multivitamin 1 tab PO DAILY 01/02/20 01/02/20 (formulary)] lisinopriL [Prinivil] 10 mg PO DAILY 01/02/20 01/02/20 ursodioL [Ursodiol] 300 mg PO BID 01/02/20 01/02/20 Allergies Allergy/AdvReac Type Severity Reaction Status Date / Time penicillin G Allergy Unknown Verified 08/26/22 06:59 Review of Systems ROS Statement: Those systems with pertinent positive or pertinent negative responses have been documented in the HPI. ROS Other: All systems not noted in ROS Statement are negative. Past Medical History Past Medical History: Cancer, GERD/Reflux, Pulmonary Embolus (PE) Additional Past Medical History / Comment(s): "Extra heart beat"-limits caffeine, sinus problems at times, kidney stones, leukemia , blood clot left arm & PE, frequent vomiting, "chemo has damaged my liver", fluid retention History of Any Multi-Drug Resistant Organisms: None Reported Past Surgical History: Cholecystectomy, Hysterectomy, Tubal Ligation Additional Past Surgical History / Comment(s): Jaw surgery for abnormal bone growth, liver biopsy Past Anesthesia/Blood Transfusion Reactions: Motion Sickness, Postoperative Nausea & Vomiting (PONV) Past Psychological History: No Psychological Hx Reported Smoking Status: Never smoker Past Alcohol Use History: None Reported Past Drug Use History: None Reported - Past Family History Mother Family Medical History: No Reported History Father Family Medical History: Coronary Artery Disease (CAD) Additional Family Medical History / Comment(s): Father had CABG at the age of 47yrs. General Exam - General Exam Comments Initial Comments: GENERAL: Patient is well-developed and well-nourished. Patient is nontoxic and well- hydrated and is in mild distress. ENT: Neck is soft and supple. No significant lymphadenopathy is noted. Oropharynx is clear. Dry mucous membranes. Neck has full range of motion without eliciting any pain. EYES: The sclera were anicteric and conjunctiva were pink and moist. Extraocular movements were intact and pupils were equal round and reactive to light. Eyelids were unremarkable. PULMONARY: Unlabored respirations. Good breath sounds bilaterally. No audible rales rhonchi or wheezing was noted. CARDIOVASCULAR: Patient is tachycardic at 100 bpm ABDOMEN: Soft and nontender with normal bowel sounds. SKIN: Skin is clear with no lesions or rashes and otherwise unremarkable. NEUROLOGIC: Patient is alert and oriented x3. Cranial nerves II through XII are grossly intact. Motor and sensory are also intact. Normal speech, volume and content. Symmetrical smile. MUSCULOSKELETAL: Normal extremities with adequate strength and full range of motion. LYMPHATICS: No significant lymphadenopathy is noted PSYCHIATRIC: Normal psychiatric evaluation. Limitations: no limitations Course Vital Signs 08/26/22 08/26/22 08/26/22 06:57 07:29 09:50 Temperature 98.6 F 102.9 F H 99.5 F Pulse Rate 102 H 86 Respiratory 20 18 Rate Blood Pressure 164/100 132/84 O2 Sat by Pulse 94 L 97 Oximetry Medical Decision Making - Medical Decision Making X-ray was interpreted by myself. X-ray of the chest showed no acute abnormality Was pt. sent in by a medical professional or institution? @ -No Did you speak to anyone other than the patient for history? @ - Did you review nursing and triage notes? @ -Agree with notes Were old charts reviewed? @ -No Differential Diagnosis? @ -Differential Abdominal Pain Women: Appendicitis, Cholecystitis, diverticulosis, ischemic bowel, pancreatitis, hepatitis, UTI, gastroenteritis, AAA, incarcerated hernia, bowel obstruction, constipation, inflammatory bowel, hepatitis, peptic ulcer disease, splenic infarction, perforated viscus, vulvitis, ovarian torsion, PID, kidney stone, placenta abruption, this is not meant to be an all-inclusive list EKG interpreted by me (3pts min.)? @ -No X-rays interpreted by me (1pt min.)? @ -X-ray of the chest showed no acute abnormality CT interpreted by me (1pt min.)? @ -No U/S interpreted by me (1pt. min.)? @ -No What testing was considered but not performed? (CT, X-rays, U/S, labs)? Why? @CT of the abdomen pelvis was considered however patient's abdomen was soft and on reexamination continued to be soft. What meds were considered but not given? Why? @ -Consider giving Lomotil however patient was not having any more active diarrhea so was not given. Did you discuss the management of the patient with other professionals? @ -No Did you reconcile home meds? @ -No Was smoking cessation discussed for >3mins.? @ -No Was critical care preformed (if so, how long)? @ -No Were there social determinants of health that impacted care today? How? (Homelessness, low income, unemployed, alcoholism, drug addiction, transportation, low edu. Level, literacy, decrease access to med. care, fdc, rehab)? @ -[Homelessness, low income, unemployed, alcoholism, drug addiction, transportation, low edu. Level, literacy, decrease access to med. care, fdc, rehab?] Was there de-escalation of care discussed even if they declined? (Discuss DNR or withdrawal of care, Hospice)? @ -No What co-morbidities impacted this encounter? (DM, HTN, Smoking, COPD, CAD, Cancer, CVA, Hep., AIDS, mental health diagnosis, sleep apnea, morbid obesity)? @ -Patient has a history of leukemia and previous renal disease so blood work was done to make sure kidney function was not getting considerably worse. Was patient admitted / discharged? @ -Patient will be discharged home. I went back and reexamined the patient after she received fluids and Zofran and she was feeling considerably better and had no abdominal pain on palpation. Undiagnosed new problem with uncertain prognosis? @ -No Drug Therapy requiring intensive monitoring for toxicity (Heparin, Nitro, Insulin, Cardizem)? @ -No Were any procedures done? @ -No Diagnosis/symptom? @ -Acute gastroenteritis Acute, or Chronic, or Acute on Chronic? @ -Acute Uncomplicated (without systemic symptoms) or Complicated (systemic symptoms)? @ -Uncomplicated Side effects of treatment? @ -No Exacerbation, Progression, or Severe Exacerbation] @ -No Poses a threat to life or bodily function? @ -No - Lab Data Result diagrams: 08/26/22 07:47 08/26/22 07:47 Lab Results 08/26/22 08/26/22 08/26/22 Range/Units 07:47 07:47 07:47 WBC 12.9 H (3.8-10.6) k/uL RBC 4.44 (3.80-5.40) m/uL Hgb 14.0 (11.4-16.0) gm/dL Hct 41.4 (34.0-46.0) % MCV 93.3 (80.0-100.0) fL MCH 31.6 (25.0-35.0) pg MCHC 33.9 (31.0-37.0) g/dL RDW 15.0 (11.5-15.5) % Plt Count 99 L (150-450) k/uL MPV 8.6 Neutrophils % 78 % Lymphocytes % 13 % Monocytes % 7 % Eosinophils % 0 % Basophils % 0 % Neutrophils # 10.0 H (1.3-7.7) k/uL Lymphocytes # 1.7 (1.0-4.8) k/uL Monocytes # 0.9 (0-1.0) k/uL Eosinophils # 0.0 (0-0.7) k/uL Basophils # 0.0 (0-0.2) k/uL Sodium 137 (137-145) mmol/L Potassium 3.9 (3.5-5.1) mmol/L Chloride 104 (98-107) mmol/L Carbon Dioxide 22 (22-30) mmol/L Anion Gap 11 mmol/L BUN 32 H (7-17) mg/dL Creatinine 2.08 H (0.52-1.04) mg/dL Est GFR (CKD-EPI)AfAm 31 (>60 ml/min/1.73 sqM) Est GFR (CKD-EPI)NonAf 27 (>60 ml/min/1.73 sqM) Glucose 124 H (74-99) mg/dL Calcium 9.2 (8.4-10.2) mg/dL Total Bilirubin 3.5 H (0.2-1.3) mg/dL AST 44 H (14-36) U/L ALT 56 H (4-34) U/L Alkaline Phosphatase 179 H (38-126) U/L Total Protein 6.9 (6.3-8.2) g/dL Albumin 4.5 (3.5-5.0) g/dL Urine Color Urine Appearance (Clear) Urine pH (5.0-8.0) Ur Specific [place] (1.001-1.035) Urine Protein (Negative) Urine Glucose (UA) (Negative) Urine Ketones (Negative) Urine Blood (Negative) Urine Nitrite (Negative) Urine Bilirubin (Negative) Urine Urobilinogen (<2.0) mg/dL Ur Leukocyte Esterase (Negative) Urine RBC (0-5) /hpf Urine WBC (0-5) /hpf Urine Bacteria (None) /hpf Hyaline Casts (0-2) /lpf Urine Mucus (None) /hpf Influenza Type A (PCR) Not Detected (Not Detectd) Influenza Type B (PCR) Not Detected (Not Detectd) RSV (PCR) Not Detected (Not Detectd) SARS-CoV-2 (PCR) Not Detected (Not Detectd) 08/26/22 Range/Units 09:18 WBC (3.8-10.6) k/uL RBC (3.80-5.40) m/uL Hgb (11.4-16.0) gm/dL Hct (34.0-46.0) % MCV (80.0-100.0) fL MCH (25.0-35.0) pg MCHC (31.0-37.0) g/dL RDW (11.5-15.5) % Plt Count (150-450) k/uL MPV Neutrophils % % Lymphocytes % % Monocytes % % Eosinophils % % Basophils % % Neutrophils # (1.3-7.7) k/uL Lymphocytes # (1.0-4.8) k/uL Monocytes # (0-1.0) k/uL Eosinophils # (0-0.7) k/uL Basophils # (0-0.2) k/uL Sodium (137-145) mmol/L Potassium (3.5-5.1) mmol/L Chloride (98-107) mmol/L Carbon Dioxide (22-30) mmol/L Anion Gap mmol/L BUN (7-17) mg/dL Creatinine (0.52-1.04) mg/dL Est GFR (CKD-EPI)AfAm (>60 ml/min/1.73 sqM) Est GFR (CKD-EPI)NonAf (>60 ml/min/1.73 sqM) Glucose (74-99) mg/dL Calcium (8.4-10.2) mg/dL Total Bilirubin (0.2-1.3) mg/dL AST (14-36) U/L ALT (4-34) U/L Alkaline Phosphatase (38-126) U/L Total Protein (6.3-8.2) g/dL Albumin (3.5-5.0) g/dL Urine Color Yellow Urine Appearance Clear (Clear) Urine pH 5.5 (5.0-8.0) Ur Specific [place] 1.011 (1.001-1.035) Urine Protein 1+ H (Negative) Urine Glucose (UA) Negative (Negative) Urine Ketones Negative (Negative) Urine Blood Moderate H (Negative) Urine Nitrite Negative (Negative) Urine Bilirubin Negative (Negative) Urine Urobilinogen <2.0 (<2.0) mg/dL Ur Leukocyte Esterase Negative (Negative) Urine RBC 4 (0-5) /hpf Urine WBC 1 (0-5) /hpf Urine Bacteria Rare H (None) /hpf Hyaline Casts 1 (0-2) /lpf Urine Mucus Rare H (None) /hpf Influenza Type A (PCR) (Not Detectd) Influenza Type B (PCR) (Not Detectd) RSV (PCR) (Not Detectd) SARS-CoV-2 (PCR) (Not Detectd) Disposition Clinical Impression: Gastroenteritis Disposition: HOME SELF-CARE Condition: Good Instructions (If sedation given, give patient instructions): Acute Nausea and Vomiting (ED), Gastroenteritis (ED) Is patient prescribed a controlled substance at d/c from ED?: No Referrals: Nataliia Frias DO [Primary Care Provider] - 1-2 days Time of Disposition: 10:08
[2022-08-26 08:02] LABS: Basophils % (A) 0 %; Eosinophils % (A) 0 %; HCT 41.4 % (34.0-46.0); Lymphocytes # (A) 1.7 k/uL (1.0-4.8); Lymphocytes % (A) 13 %; MCH 31.6 pg (25.0-35.0); MCHC 33.9 g/dL (31.0-37.0); MCV 93.3 fL (80.0-100.0); Mean Platelet Volume 8.6; Monocytes # (A) 0.9 k/uL (0-1.0); Monocytes % (A) 7 %; Neutrophils % (A) 78 %; Platelet Count 99 k/uL (150-450); RBC 4.44 m/uL (3.80-5.40); WBC 12.9 k/uL (3.8-10.6)
--- NOTE | 2022-08-26 08:17 | XR ---
EXAMINATION TYPE: XR chest 2V DATE OF EXAM: 08/26/2022 COMPARISON: 01/02/2020 HISTORY: 51 year-old female shortness of breath, cough/congestion, difficulty breathing TECHNIQUE: PA and lateral views FINDINGS: The cardiomediastinal silhouette, aorta, and pulmonary vasculature are within normal limits. Mild int erstitial prominence. Otherwise, lungs and pleural spaces are clear. IMPRESSION: Mild interstitial prominence could reflect bronchitis or asthma. Otherwise, no acute process seen.
[2022-08-26 08:19] LABS: Albumin 4.5 g/dL (3.5-5.0); Calcium 9.2 mg/dL (8.4-10.2); Potassium 3.9 mmol/L (3.5-5.1); Total Bilirubin 3.5 mg/dL (0.2-1.3); Total Protein 6.9 g/dL (6.3-8.2)
[2022-08-26 09:48] LABS: Appearance,Urine Clear (Clear); Bacteria,Urine Rare /hpf; Bilirubin,Urine Negative (Negative); Blood,Urine Moderate (Negative); Color,Urine Yellow; Glucose,Urine (UA) Negative (Negative); Hyaline Casts,Urine 1 /lpf (0-2); Ketones,Urine Negative (Negative); Leukocyte Esterase,Urine Negative (Negative); Mucus,Urine Rare /hpf; Nitrite,Urine Negative (Negative); PH, Urine 5.5 (5.0-8.0); Protein,Urine 1+ (Negative); RBC,Urine 4 /hpf (0-5); Specific Gravity,Urine 1.011 (1.001-1.035); Urobilinogen,Urine <2.0 mg/dL (<2.0); WBC,Urine 1 /hpf (0-5)
[2022-08-26 09:51] VITALS: BP 132/84; PULSE 86; RESP 18; TEMP 99.5
[2022-08-26] MEDS ORDERED: ONDANSETRON 4 MG ODT STARTER PACK 2 TAB BTL PO STA (10:09)
== END 2022-08-26 10:25 | disposition home or self-care (01) ==
LOC: EC 06:55
DX: K52.9 Noninfective gastroenteritis and colitis, unspecified (principal); Z88.0 Allergy status to penicillin; Z20.822 Contact with and (suspected) exposure to COVID-19
CPT/HCPCS: 36415; 80053; 85025; 81001; 87636; 71046; 99284; 96374; 96361 ×3; J2405; S0119

== ENCOUNTER → 2023-08-08 | Outpatient (CLI) | payer BC ==
--- NOTE | 2023-08-08 13:33 | BD ---
EXAMINATION TYPE: Axial Bone Density DATE OF EXAM: 08/08/2023 CLINICAL HISTORY: 52 years old Female. ICD-10 CODE: Z78.0 POST MENOPAUSAL Height: 69.5" Weight: 184.1lbs FRAX RISK QUESTIONS: Alcohol (3 or more units per day): No Family History (Parent hip fracture): No Glucocorticoids (More than 3mos): Possibly when patient had leukemia 4 years ago (Ex: prednisone, prednisolone, methylprednisolone, dexamethasone, and hydrocortisone). History of Fracture in Adulthood: No Secondary Osteoporosis: 1. Type 1 Diabetes: No 2. Hyperthyroidism: No 3. Menopause before 45: 38 4. Malnutrition: No 5. Chronic liver disease: Yes, chemo induced Rheumatoid Arthritis: No Current Tobacco Use: No RISK FACTORS HISTORY OF: Hip Fracture (Right/Left): No Spine Fracture: No History of Wrist Fracture: No Surgery to Spine/Hip(right/left)/Wrist (right/left): No Family History of Osteoporosis: Yes. Mother. Active: Yes Diet low in dairy products/other sources of calcium: No Postmenopausal woman: Yes Lost more than 2 inches in height since high school: No Frequent falls: No Poor Health: No Hyperparathyroidism: No Adrenal Insufficiency: Yes, chemo induced MEDICATIONS: Prednisone or other steroids: No Thyroid Medications: No Osteoporosis Medications: No Additional Medications: Blood pressure, Vitamin D & C supplements Additional History: Patient had leukemia and chemotherapy, also bone marrow tx about 4 years ago EXAM MEASUREMENTS: Bone mineral densitometry was performed using the [employer] System. Bone mineral density as measured about the Lumbar spine is: ----- L1-L4(G/cm2): 1.162 T Score Values are as follows: ----- L1: 0.3 ----- L2: -0.1 ----- L3: -0.3 ----- L4: -0.5 ----- L1-L4: -0.1 Z Score Values are as follows: ----- L1: 0.3 ----- L2: -0.1 ----- L3: -0.3 ----- L4: -0.5 ----- L1-L4: -0.1 Baseline @ [facility] Bone mineral density about the R hip (g/cm2): 0.907 Bone mineral density about the L hip (g/cm2): 0.846 T Score values are as follows: -----R Neck: -0.5 -----L Neck: -0.9 -----R Total: -0.8 -----L Total: -1.3 Z Score values are as follows: -----R Neck: 0.0 -----L Neck: -0.4 -----R Total: -0.7 -----L Total: -1.2 Baseline @ [facility] FRAX%s: The graph provided illustrates a 4.8% chance for a major osteoporotic fx and a 0.2% chance fo r the hips probability for fx in 10 years time. IMPRESSION: Osteopenia (T Score between -2.5 and -1). There is slightly increased risk of fracture and the patient may be considered for treatment. Re-Screen 2-5 years. NOTE: T-SCORE=SD OF THE YOUNG ADULT MEAN.
--- NOTE | 2023-08-11 18:13 | MM ---
Reason for Exam: Screening (asymptomatic). Last mammogram was performed 1 year(s) and 1 month(s) ago. Patient History: Menarche at age 13. First Full-Term at age 19. Hysterectomy at age 37. Maternal aunt had breast cancer. Risk Values: Amber 5 year model risk: 0.8%. NCI Lifetime model risk: 6.3%. Prior Study Comparison: 08/07/2017 Left Diagnostic Mammogram, [facility]. 02/28/2018 Bilateral Screening Mammogram, [facility]. 07/27/2022 Bilateral MG screening mammo w CAD, [facility]. Tissue Density: The breast tissue is heterogeneously dense. This may lower the sensitivity of mammography. Findings: Analyzed By CAD. Unchanged asymmetric density lateral aspect of the right breast on the CC view. There is no suspicious group of microcalcifications or new suspicious mass in either breast. Overall Assessment: Benign, BI-RAD 2 Management: Screening Mammogram of both breasts in 1 year. . Patient should continue monthly self-breast exams. A clinical breast exam by your physician is recommended on an annual basis. This exam should not preclude additional follow-up of suspicious palpable abnormalities. Note on Amber scores and lifetime risk: 1. A Amber score greater than 3% is considered moderate risk. If this is the case, consider specialist referral to assess eligibility for a risk reducing agent. 2. If overall lifetime risk for the development of breast cancer is 20% or higher, the patient may qualify for future screening with alternating mammogram and breast MRI. Electronically signed and approved by: Kanika Frazier M.D. Radiologist
== END | disposition home or self-care (01) ==
LOC: RADMAMWWP 06:53
PROVIDERS: ATTEND Family Medicine
DX: Z12.31 Encounter for screening mammogram for malignant neoplasm of breast (principal); Z78.0 Asymptomatic menopausal state; Z80.3 Family history of malignant neoplasm of breast
CPT/HCPCS: 77067; 77080

== ENCOUNTER → 2025-01-14 | Outpatient (CLI) | payer BC ==
--- NOTE | 2025-01-14 08:36 | MM ---
Reason for Exam: Screening (asymptomatic). Last mammogram was performed 1 year(s) and 5 month(s) ago. Patient History: Menarche at age 13. First Full-Term at age 19. Hysterectomy at age 37. Maternal aunt had breast cancer. Risk Values: Amber 5 year model risk: 0.8%. NCI Lifetime model risk: 6.1%. Prior Study Comparison: 02/28/2018 Bilateral Screening Mammogram, [facility]. 07/27/2022 Bilateral MG screening mammo w CAD, [facility]. 08/08/2023 Bilateral MG screening mammo w CAD, [facility]. Tissue Density: The breasts are heterogeneously dense, which may obscure small masses. Findings: Analyzed By CAD. There are benign-appearing small round and vascular calcifications bilaterally redemonstrated. There is no suspicious group of microcalcifications or new suspicious mass in either breast. Overall Assessment: Benign, BI-RAD 2 Management: Screening Mammogram of both breasts in 1 year. . Patient should continue monthly self-breast exams. A clinical breast exam by your physician is recommended on an annual basis. This exam should not preclude additional follow-up of suspicious palpable abnormalities. Note on Amber scores and lifetime risk: 1. A Amber score greater than 3% is considered moderate risk. If this is the case, consider specialist referral to assess eligibility for a risk reducing agent. 2. If overall lifetime risk for the development of breast cancer is 20% or higher, the patient may qualify for future screening with alternating mammogram and breast MRI. [facility], , 01/14/2025 7:59 AM. Electronically signed and approved by: Sameer Stovall M.D.
== END | disposition home or self-care (01) ==
LOC: RADMAMWWP 07:08
PROVIDERS: ATTEND Family Medicine
DX: Z12.31 Encounter for screening mammogram for malignant neoplasm of breast (principal); R92.333 Mammographic heterogeneous density, bilateral breasts; Z80.3 Family history of malignant neoplasm of breast
CPT/HCPCS: 77063; 77067